=== PATIENT | female | born 1935 | race Caucasian/White ===

== ENCOUNTER 2021-03-03 01:59 | Inpatient (IN) | payer MEDICARE, OTHER, SELFPAY ==
[2021-03-03] VITALS (16 sets, daily range): BP systolic 110–187; BP diastolic 47–89; PULSE 71–88; RESP 16–20; TEMP 36.1–36.8; O2SAT 95–100; BMI 27.1
--- NOTE | 2021-03-03 02:07 | EKG12_ITS ---
Test Reason : SOB Blood Pressure : / mmHG Vent. Rate : 076 BPM Atrial Rate : 076 BPM P-R Int : 152 ms QRS Dur : 074 ms QT Int : 464 ms P-R-T Axes : 060 -22 004 degrees QTc Int : 522 ms Normal sinus rhythm Inferior infarct , age undetermined Anteroseptal infarct , age undetermined Prolonged QT Abnormal ECG Confirmed by TATY AVILA, GIULIANO ([id number]), assignment desk editor ZEHRA BROOKE ([id number]) on 03/04/2021 9:07:41 AM Referred By: JEAN Confirmed By:GIULIANO POSEY MD
--- NOTE | 2021-03-03 02:15 | PCM.HP.STD ---
Documented by User: Irais Navas NP-Josse 03/03/21 02:51 HPI - General General Date of Admission: 03/03/21 HPI Narrative JUAN CHUNG, is a 86 F who presents today from [facility] for shortness of breath, elevated troponins. Patient states that she has been short of breath for the past 4 days. Patient states she is short of breath more so with exertion, currently on 3 L which is her home O2 setting. Upon review of chart from [facility] EKG shows normal sinus rhythm with an anteroseptal infarct, age undetermined and elevated troponins most recent 0.95. Patient also had elevated D-dimer, though when corrected for age is normal however a CTA was completed at that showed cardiomegaly, small bilateral pleural effusions with adjacent compressive atelectasis and mild groundglass opacities. Patient's Covid was negative. Patient also has a elevated BNP at 583. Patient was also found to have positive leukocytes, positive protein, positive blood and urine. Due to CT and urinalysis findings patient was given 1 dose of Levaquin IV at [place]. [facility] Medical History (Updated 03/03/21 @ 02:28 by Irais Navas NP-C) Left ovarian cyst Allergy/AdvReac Type Severity Reaction Status Date / Time Penicillins Allergy Mild Rash Verified 03/03/21 02:01 Surgical History (Updated 03/03/21 @ 02:28 by Irais Navas NP-C) H/O dilation and curettage History of appendectomy History of cholecystectomy Social History Smoking Status: Former smoker ROS Constitutional Constitutional: Reports fatigue; Denies anorexia, chills or fever(s) Cardiovascular Cardiovascular: Denies chest pain or palpitations Respiratory/Chest Respiratory/Chest: Reports cough, shortness of breath with exertion and wheezing Gastrointestinal Gastrointestinal: Reports diarrhea; Denies abdominal pain, constipation, nausea or vomiting Genitourinary Genitourinary: Reports dysuria Musculoskeletal Musculoskeletal: Reports back pain Integumentary Integumentary: Reports dry skin Neurologic Neurologic: Denies abnormal gait or abnormal speech Psychiatric Psychiatric: Denies anxiety or depression Endocrine Endocrinology: Denies change in body appearance Hematologic/Lymphatic Hematologic/Lymphatic: Reports anemia; Denies easy bleeding or easy bruising Physical Exam Const alert General Appearance: cooperative Orientation / Consciousness: oriented to person, oriented to place, oriented to time and other Other Details: Forgetful HEENT normocephalic and head/scalp atraumatic Eyes PERRL and EOMs intact bilaterally Neck supple and no JVD General: trachea midline Resp normal respiratory effort Effort and Inspection: tachypneic Auscultation: wheezes and diminished lung sounds diffuse Cardio regular rate, regular rhythm, S1 normal heart sound and S2 normal heart sound GI normal to inspection, nondistended, normoactive bowel sounds, soft to palpation and non-tender Auscultation: hyperactive bowel sounds Extremity normal capillary refill General Extremity: edema bilateral lower extremity Details: mild and no tenderness to palpation of joints or extremities Skin General Skin Exam: no breakdown and turgor normal Lesions: no lesions Rashes: no rashes Neuro CN's II-XII intact bilaterally Psych cooperative and affect normal Appearance: appropriate Assessment & Plan Assessment/Plan (1) Urinary tract infection: Status: Acute Code(s): N39.0 - Urinary tract infection, site not specified (2) Non-STEMI (non-ST elevated myocardial infarction): Status: Acute Code(s): I21.4 - Non-ST elevation (NSTEMI) myocardial infarction (3) Pneumonia: Status: Acute Code(s): J18.9 - Pneumonia, unspecified organism (4) Chronic anemia: Status: Chronic Code(s): D64.9 - Anemia, unspecified (5) GERD (gastroesophageal reflux disease): Status: Acute Code(s): K21.9 - Gastro-esophageal reflux disease without esophagitis (6) COPD (chronic obstructive pulmonary disease): Status: Chronic Code(s): J44.9 - Chronic obstructive pulmonary disease, unspecified (7) Hyperlipidemia: Status: Acute Code(s): E78.5 - Hyperlipidemia, unspecified (8) Diabetes mellitus type 2 in obese: Status: Acute Code(s): E11.69 - Type 2 diabetes mellitus with other specified complication; E66.9 - Obesity, unspecified (9) Hypertension: Status: Chronic Code(s): I10 - Essential (primary) hypertension Plan: 1. Pneumonia -Admit to PCU -Levaquin 750 mg IV every 24 hour for coverage of pneumonia and urinary tract infection -Sputum culture ordered -As needed albuterol nebulizer treatments ordered -Scheduled DuoNeb nebulizer treatments ordered -Encourage incentive spirometry -Infectious disease consulted due to recurrent pneumonia diagnosis -As needed Robitussin -Urine strep pneumoniae and Legionella ordered -Respiratory panel ordered, Covid PCR and antigen negative at [facility] -O2 per protocol, patient currently on 3 L which is her home O2 setting -PT and OT to eval and treat 2. Non-ST elevated myocardial infarction -Due to increasing troponins will continue heparin drip at this time -Cardiology consulted, JAIRON 4, HEART 6 -Trend cardiac enzymes -Echo in a.m. -Lipid panel in a.m. -We will keep n.p.o. at this time pending cardiology consult 3. Urinary tract infection -Urinalysis and urine culture ordered -Due to concurrent UTI and pneumonia strep pneumonia and Legionella urine ordered -Levaquin 750 mg IV ordered, to cover pneumonia and urinary tract infection -Intake and output 4. Chronic anemia -Continue ferrous gluconate 324 mg p.o. daily 5. Gastroesophageal reflux disease -Continue omeprazole daily 6. Chronic obstructive pulmonary disease -Continue prednisone 10mg every other day 7. Hyperlipidemia -Continue simvastatin 80 mg nightly 8. Diabetes mellitus type 2 in obese -Will hold Metformin and glimepiride at this time -AC at bedtime blood sugars with sliding scale -Lantus 10 units twice daily 9. Hypertension -Continue carvedilol, furosemide. DVT prophylaxis-not indicated, patient on heparin drip This patient was seen by ION Sewell under the supervision of Dr. Tineo Documented by User: Dr. Bob Tineo MD 03/03/21 03:20 HPI - General General Date of Admission: 03/03/21 [facility] Medical History (Updated 03/03/21 @ 02:28 by KENNY SewellC) Left ovarian cyst Allergy/AdvReac Type Severity Reaction Status Date / Time Penicillins Allergy Mild Rash Verified 03/03/21 02:01 Surgical History (Updated 03/03/21 @ 02:28 by Irais Navas NP-C) H/O dilation and curettage History of appendectomy History of cholecystectomy Social History Smoking Status: Former smoker Addendum Addendum: 86-year-old female with a significant history of COPD on 3 L nasal cannula oxygen; hyperlipidemia; diabetes mellitus; hypertension; who presented to [facility] ED with progressively worsening shortness of breath that started 3 days before presentation. Patient has received her Covid vaccination. Reportedly at the emergency department patient was wheezing and she was given DuoNeb and solumedrol. D-dimer age corrected was normal. Chest CTA was negative for PE. Chest x-ray showed bilateral pleural effusion and infiltrates. Urinalysis was abnormal. BNP was 583. Initial troponin was 0.439. Troponin increased to 0.95. Patient was given aspirin and started on a heparin drip. EKG showed old anterior septal infarct. Because of increasing troponin patient was sent to our Hospital. ([facility]). Vitals at [facility] was 136/90 Temp 99.1 Fahrenheit; respiratory rate of 20. Her oxygen saturation on a home baseline 3 L was 100%. Alert and oriented x3 Nontraumatic; normocephalic Lungs with rales Heart sounds S1-S2. Murmur 5/6 present. No gallop or rubs. Abdomen bowel sounds present soft, nontender nondistended Extremity without edema cyanosis or clubbing. Community-acquired pneumonia Acute chest x-ray image was independently interpreted: Patient with cardiomegaly. Bilateral interstitial infiltrates. Bilateral pleural effusion. Was given Levaquin at [facility]. Home record shows Levaquin. Will order ceftriaxone and azithromycin. Acute Cystitis Complains of urinary symptoms. Urinalysis at [place] ED was reviewed. Urinalysis with small leukocyte esterase. Proteinuria. Urine appearance was hazy. Small blood was present. Nitrites negative. Received Levaquin at [facility] ED. GFR is 58. Ceftriaxone as above. Non-ST elevation [place] Trend troponin. Continue heparin drip for now. Daily aspirin ordered. Check lipid panel Keep n.p.o. for now. Echo ordered A chest CT with small bilateral pleural effusion with adjacent compressive atelectasis. Cardiomegaly with trace pericardial effusion. Groundglass opacities. Daily weights ordered. Cardiology consult COPD: Stable. Continue home steroids. Scheduled DuoNeb ordered. As needed albuterol inhalation ordered. Clinical monitoring. If moderate to severe wheezing consider escalating steroid dose Diabetes mellitus: Patient with hyperglycemia on presentation at [facility] ED. While n.p.o. hold glimepiride. Metformin held. Accu-Chek with correction scale insulin ordered. Diarrhea: Chronic. Continue cholestyramine when patient is no longer n.p.o. Patient to follow-up with PCP. DVT prophylaxis: Not indicated since patient is on heparin drip which has been continued. Visit Charges Inpatient E&M: 50708 Init Hosp L3
[2021-03-03 03:03] LABS: Absolute Lymphocyte Count 0.46 X10^3/uL (0.83-4.51); Absolute Neutrophil Count 4.3 X10^3/uL (2.0-7.7); Basophil# 0.01 X10^3/uL; Basophil% 0.2 % (0-1); Hematocrit 36.8 % (37-47); Hemoglobin 11.8 g/dL (12.0-15.0); Lymphocyte # 0.46 X10^3/ul (0.83-4.51); Lymphocyte % 9.5 % (19-41); Mean Corp Hgb Conc 32.1 g/dL (32-36); Mean Corpuscular Hgb 26.4 pg (27.0-32.0); Mean Corpuscular Volume 82.3 fL (81-99); Mean Platelet Vol. 8.8 fl (6.2-12.0); Monocyte# 0.08 X10^3/uL; Monocyte% 1.7 % (0-10); NRBC Flagged by Analyzer 0 % (0-5); Neutrophil # 4.26 X10^3/uL (2.7-7.7); POSITIVE DIFFERENTIAL YES; Platelet Count 171 K/mm3 (150-450); RBC Distribution Width CV 13.3 % (11.6-14.6); Red Blood Count 4.47 M/mm3 (4.2-5.4); White Blood Count 4.8 K/mm3 (4.4-11.0)
[2021-03-03 03:08] LABS: Differential Indicated SCAN CRITERIA MET
[2021-03-03 03:36] LABS: Partial Thromboplast Time 112.7 Seconds (24.1-36.2)
[2021-03-03] MEDS: 0.9% Saline Lock 10 ML Syringe IV ×5 (03:48→18:01)
[2021-03-03] MEDS: Ceftriaxone 1 GM/50 ML BAG IV ×2 (03:49→21:55)
[2021-03-03] MEDS: Ipratropium/Albuterol Sulfate 3 ML AMPUL.NEB INHALATION ×5 (04:00→22:49)
[2021-03-03] MEDS: HEPARIN/D5w 25,000 UNITS 25,000 UNITS/250 ML IV.SOLN. 7 UNITS IV (05:12)
--- NOTE | 2021-03-03 05:55 | ECHOD_ITS ---
Reason For Study: Other Procedure This was a 2D Doppler, Color Flow transthoracic echocardiogram. Exam performed portable in patient room. Left Ventricle Normal LV size. Severe concentric left ventricular hypertrophy. Left ventricular systolic function is normal. The estimated ejection fraction is 65 %. No regional wall motion abnormalities noted. Right Ventricle Normal RV size. Normal systolic function. Atria Normal left atrium. Normal right atrium. Mitral Valve Normal mitral valve. Trivial eccentric mitral valve insufficiency. Tricuspid Valve Normal tricuspid valve. Mild to moderate (1-2+) tricuspid valve insufficiency. Pulmonary artery systolic pressure is 38 mmHg. Aortic Valve Trisinus/trileaflet aortic valve. Mild focal aortic valve calcification. Peak aortic valve gradient 24 mmHg. Mean aortic valve gradient 14 mmHg. Mild to moderate aortic stenosis. Pulmonic Valve Normal pulmonic valve. Great Vessels Normal aortic root. The pulmonary artery is normal size. Normal inferior vena cava. Pericardium/Pleural Trivial pericardial effusion. MMode/2D Measurements & Calculations LVIDd: 3.2 cm IVSd: 1.9 cm LVOT diam: 1.9 cm LVIDs: 1.9 cm LVPWd: 1.6 cm LVOT area: 2.7 cm2 RVDd: 2.8 cm FS: 39.3 % Ao root diam: 3.2 cm LAV(MOD-bp): 37.6 ml LA A4 area: 15.5 cm2 LAV(MOD-bp) Indexed: 21.8 ml/m2 LAV(MOD-sp2): 40.4 ml LAV(MOD-sp4): 35.9 ml LA dimension(2D): 3.9 cm RA A4 area: 13.2 cm2 Time Measurements MV dec time: 0.49 sec Doppler Measurements & Calculations MV E max aguila: 107.6 cm/sec Lat Peak E' Aguila: 3.0 cm/sec Med Peak E' Aguila: 2.8 cm/sec MV A max aguila: 141.5 cm/sec E/E' lat: 35.5 E/E' med: 37.9 MV E/A: 0.76 MV V2 max: 143.4 cm/sec MV P1/2t max aguila: 118.1 cm/sec Ao V2 max: 247.1 cm/sec MV max P.2 mmHg MV P1/2t: 139.6 msec Ao max P.4 mmHg MV V2 mean: 88.7 cm/sec MV dec slope: 247.8 cm/sec2 Ao V2 mean: 179.3 cm/sec MV mean P.4 mmHg Ao mean P.1 mmHg MV V2 VTI: 45.6 cm MVA(P1/2t): 1.6 cm2 Ao V2 VTI: 58.9 cm MVA(VTI): 1.4 cm2 MUSTAPHA(I,D): 1.1 cm2 MUSTAPHA(V,D): 1.1 cm2 LV V1 max: 101.2 cm/sec SV(LVOT): 64.5 ml PA V2 max: 111.7 cm/sec LV V1 max P.1 mmHg LV V1 mean P.3 mmHg LV V1 mean: 73.4 cm/sec LV V1 VTI: 23.7 cm TR max aguila: 294.9 cm/sec TR max P.8 mmHg ECHO/Echo Complete Interpretation Summary Normal LV size. Left ventricular systolic function is normal. The estimated ejection fraction is 65 %. Mild focal aortic valve calcification. Mean aortic valve gradient 14 mmHg. Mild to moderate aortic stenosis. Pulmonary artery systolic pressure is 38 mmHg. Severe concentric left ventricular hypertrophy. Infiltrative disease cannot be excluded. Ordering Physician: Irais Navas Referring Physician: Joaquin Caro Performed By: Ashely Lea, TABATHA, RVT
[2021-03-03] MEDS: Insulin Lispro 100 UNIT/ML INSULN.PEN SC ×4 (06:42→22:00)
[2021-03-03 06:51] LABS: Bedside Glucose 412 mg/dL (70-110)
--- NOTE | 2021-03-03 07:00 | PCM.PN.HOSP ---
Subjective Subjective: Patient with no acute events overnight per self and per nursing report. Patient does state that suprapubic discomfort has been lessening since initial presentation and initiation of antibiotic therapy. She does still have some urinary frequency sensation. Patient notes some mild cough but no dyspnea sensation. She denies having any chest discomfort despite presentation with elevated cardiac enzymes. Patient denies fevers, chills, nausea, emesis, abdominal pain, chest pain. Objective Data Objective Data Vital Signs: Vital Signs Temp Pulse Resp BP Pulse Ox 97.1 F L 88 18 146/47 H 98 03/03/21 12:35 03/03/21 12:35 03/03/21 12:35 03/03/21 12:35 03/03/21 12:35 Oxygen Flow Rate (L/min) 3 Oxygen Delivery Method Nasal Cannula Weight: 153 lb 3.54 oz Body Mass Index (BMI) 27.1 Intake & Output: Intake and Output for Last 24 Hours 03/01/21 03/02/21 03/03/21 23:59 23:59 23:59 Intake Total 830.35 / 830.35 Output Total 200 / 200 Balance 630.35 / 630.35 Lab / Micro Data Result Diagrams: 03/03/21 02:50 03/03/21 02:50 Labs: Laboratory Results - last 24 hr 03/03/21 03/03/21 03/03/21 02:50 02:50 02:50 WBC 4.8 RBC 4.47 Hgb 11.8 L Hct 36.8 L MCV 82.3 MCH 26.4 L MCHC 32.1 RDW Std Deviation 40.0 RDW Coeff of Tashia 13.3 Plt Count 171 MPV 8.8 Immature Gran % (Auto) 0.600 Neut % (Auto) 88.0 H Lymph % (Auto) 9.5 L [place] % (Auto) 1.7 Eos % (Auto) 0.0 Baso % (Auto) 0.2 Absolute Neuts (auto) 4.3 Absolute Lymphs (auto) 0.46 L Nucleated RBC % 0 APTT 112.7 H* Sodium 131 L Potassium 3.6 Chloride 97 L Carbon Dioxide 24.0 Anion Gap 10 BUN 17 Creatinine 1.25 H Estim Creat Clear Calc 27.22 Est GFR (MDRD) Af Amer 52 L Est GFR (MDRD) Non-Af 43 L BUN/Creatinine Ratio 13.6 Glucose 399 H Hemoglobin A1c Calcium 8.0 L Magnesium Troponin I B-Natriuretic Peptide Triglycerides 147 Cholesterol 166 LDL Cholesterol 69 VLDL Cholesterol 29 HDL Cholesterol 68 Procalcitonin TSH Urine Color Urine Clarity Urine pH Ur Specific [place] Urine Protein Urine Glucose (UA) Urine Ketones Urine Occult Blood Urine Nitrite Urine Bilirubin Urine Urobilinogen Ur Leukocyte Esterase Urine RBC Urine WBC Ur Squamous Epith Cells Urine Bacteria Urine Mucus POC Glucose 03/03/21 03/03/21 03/03/21 02:50 02:50 05:50 WBC RBC Hgb Hct MCV MCH MCHC RDW Std Deviation RDW Coeff of Tashia Plt Count MPV Immature Gran % (Auto) Neut % (Auto) Lymph % (Auto) [place] % (Auto) Eos % (Auto) Baso % (Auto) Absolute Neuts (auto) Absolute Lymphs (auto) Nucleated RBC % APTT Sodium Potassium Chloride Carbon Dioxide Anion Gap BUN Creatinine Estim Creat Clear Calc Est GFR (MDRD) Af Amer Est GFR (MDRD) Non-Af BUN/Creatinine Ratio Glucose Hemoglobin A1c 8.5 H Calcium Magnesium Troponin I 1.400 H* 1.110 H* B-Natriuretic Peptide Triglycerides Cholesterol LDL Cholesterol VLDL Cholesterol HDL Cholesterol Procalcitonin TSH Urine Color Urine Clarity Urine pH Ur Specific [place] Urine Protein Urine Glucose (UA) Urine Ketones Urine Occult Blood Urine Nitrite Urine Bilirubin Urine Urobilinogen Ur Leukocyte Esterase Urine RBC Urine WBC Ur Squamous Epith Cells Urine Bacteria Urine Mucus POC Glucose 03/03/21 03/03/21 03/03/21 05:50 06:17 06:40 WBC RBC Hgb Hct MCV MCH MCHC RDW Std Deviation RDW Coeff of Tashia Plt Count MPV Immature Gran % (Auto) Neut % (Auto) Lymph % (Auto) [place] % (Auto) Eos % (Auto) Baso % (Auto) Absolute Neuts (auto) Absolute Lymphs (auto) Nucleated RBC % APTT Sodium Potassium Chloride Carbon Dioxide Anion Gap BUN Creatinine Estim Creat Clear Calc Est GFR (MDRD) Af Amer Est GFR (MDRD) Non-Af BUN/Creatinine Ratio Glucose Hemoglobin A1c Calcium Magnesium Troponin I B-Natriuretic Peptide 480.7 H Triglycerides Cholesterol LDL Cholesterol VLDL Cholesterol HDL Cholesterol Procalcitonin TSH Urine Color Yellow Urine Clarity Clear Urine pH 6.0 Ur Specific [place] 1.015 Urine Protein 500 H Urine Glucose (UA) 1000 H Urine Ketones 50 H Urine Occult Blood 150 H Urine Nitrite Negative Urine Bilirubin Negative Urine Urobilinogen Normal Ur Leukocyte Esterase 100 H Urine RBC 0-5 SEEN Urine WBC 25-50 SEEN Ur Squamous Epith Cells 0-5 SEEN Urine Bacteria RARE Urine Mucus 0 SEEN POC Glucose 412 H 03/03/21 03/03/21 03/03/21 08:46 08:46 08:46 WBC RBC Hgb Hct MCV MCH MCHC RDW Std Deviation RDW Coeff of Tashia Plt Count MPV Immature Gran % (Auto) Neut % (Auto) Lymph % (Auto) [place] % (Auto) Eos % (Auto) Baso % (Auto) Absolute Neuts (auto) Absolute Lymphs (auto) Nucleated RBC % APTT Sodium Potassium Chloride Carbon Dioxide Anion Gap BUN Creatinine Estim Creat Clear Calc Est GFR (MDRD) Af Amer Est GFR (MDRD) Non-Af BUN/Creatinine Ratio Glucose Hemoglobin A1c Calcium Magnesium 1.5 L Troponin I 0.749 H* B-Natriuretic Peptide Triglycerides Cholesterol LDL Cholesterol VLDL Cholesterol HDL Cholesterol Procalcitonin 0.17 H TSH Urine Color Urine Clarity Urine pH Ur Specific [place] Urine Protein Urine Glucose (UA) Urine Ketones Urine Occult Blood Urine Nitrite Urine Bilirubin Urine Urobilinogen Ur Leukocyte Esterase Urine RBC Urine WBC Ur Squamous Epith Cells Urine Bacteria Urine Mucus POC Glucose 03/03/21 03/03/21 03/03/21 08:46 11:10 12:16 WBC RBC Hgb Hct MCV MCH MCHC RDW Std Deviation RDW Coeff of Tashia Plt Count MPV Immature Gran % (Auto) Neut % (Auto) Lymph % (Auto) [place] % (Auto) Eos % (Auto) Baso % (Auto) Absolute Neuts (auto) Absolute Lymphs (auto) Nucleated RBC % APTT 32.8 Sodium Potassium Chloride Carbon Dioxide Anion Gap BUN Creatinine Estim Creat Clear Calc Est GFR (MDRD) Af Amer Est GFR (MDRD) Non-Af BUN/Creatinine Ratio Glucose Hemoglobin A1c Calcium Magnesium Troponin I B-Natriuretic Peptide Triglycerides Cholesterol LDL Cholesterol VLDL Cholesterol HDL Cholesterol Procalcitonin TSH 1.55 Urine Color Urine Clarity Urine pH Ur Specific [place] Urine Protein Urine Glucose (UA) Urine Ketones Urine Occult Blood Urine Nitrite Urine Bilirubin Urine Urobilinogen Ur Leukocyte Esterase Urine RBC Urine WBC Ur Squamous Epith Cells Urine Bacteria Urine Mucus POC Glucose 420 H Micro: Microbiology 03/03/21 03:55 Mucosa - Nasopharyngeal Respiratory Panel (PCR) - Final Parainfluenza 3 03/03/21 08:00 Interface Orders SARS-CoV-2 Antigen (Rapid) - Final 03/03/21 06:17 Urine, Clean Catch Legionella Antigen - Final 03/03/21 06:17 Urine, Clean Catch Streptococcus pneumoniae Antigen (M - Final Radiography Diagnostic Testing: Radiology Impression Echocardiogram 03/03/21 05:55 Interpretation Summary Normal LV size. Left ventricular systolic function is normal. The estimated ejection fraction is 65 %. Mild focal aortic valve calcification. Mean aortic valve gradient 14 mmHg. Mild to moderate aortic stenosis. Pulmonary artery systolic pressure is 38 mmHg. Severe concentric left ventricular hypertrophy. Infiltrative disease cannot be excluded. Ordering Physician: Irais Navas Referring Physician: Joaquin Caro Performed By: Ashely Lea, TABATHA, RVT Physical Exam Narrative Physical Examination: General: awake, alert, oriented x 3 and cooperative, seated upright in the PCU bed in no apparent distress, notes feeling improved since initial ED presentation. Skin: normal color, turgor, no icterus, cyanosis. HEENT: AT/NC, EOMI, PERRLA, mildly dry MM. Lungs: CTA bilaterally, moderate effort, mild decrease BL bases, no rales, ronchi or wheezing. Heart: Regular rate and rhythm; no gallop, rub audible, + SM. Abdomen: soft, NTTP, ND, normal BS, no HSM. Extremities: no cyanosis, clubbing, or edema. Neurological: patient awake, alert, oriented x 3; cognitive function intact; pupils equally reactive to light and accomodation; cranial nerves II-XII grossly normal, moving all 4 extremities, no focal deficits, strength preserved. Psychiatric: affect appears normal, no acute evidence of depressive or anxiety feelings. Assessment & Plan Assessment/Plan (1) COPD exacerbation: (2) Acute bronchitis due to parainfluenza virus: (3) Non-STEMI (non-ST elevated myocardial infarction): (4) CHF (NYHA class III, ACC/AHA stage C): (5) Urinary tract infection: PLAN: The patient is an 86 y/o F w/ PMHx: Chronic anemia, GERD, HTN, HLD, Diabetes mellitus type II, Former Tobacco use, Chronic COPD w/ Chronic Hypoxic Respiratory Failure (3L NC) who presents to the [facility] ED on 03/03/21 w/ history of transfer from OSH ED [place] with onset dyspnea worsening x 4 days with elevated troponin, evidence UTI and at that time concern for PNA. 1. Acute Parainfluenza III Viral Syndrome, Acute Bronchitis with Acute on Chronic COPD exacerbation w/ Chronic Hypoxic Respiratory Failure (3L NC): OSH [place] ED with CTPA with cardiomegaly with small bilateral pleural effusions and adjacent compressive atelectasis as well as mild groundglass opacities, Covid negative, BNP 583. Patient was administered Levaquin IV dose at [facility] for concern for UTI and pneumonia. Admitted to PCU, maintain on oxygen with wean as tolerated to room air, continue ATC duonebs, PRN albuterol, maintained on Rocephin and Azithromycin initially but given respiratory viral panel with + source likely viral component and CTPA findings overload as noted #3 with CBC upon current presentation with WBC 4.8, hemoglobin 11.8, platelet 171 with no left shift with lymphopenia therefore will discontinue azithromycin (continue rocephin for concurrently noted UTI). HOB, IS parameters w/ pending sputum cultures. Urine antigens negative. 2. Acute NSTEMI: EKG in ED w/ sinus rhythm with evidence prior anterior septal infarct age undetermined, CT PA as noted with cardiomegaly with small bilateral pleural effusions and adjacent compressive atelectasis as well as mild groundglass opacities with no evidence of pulmonary emboli. Continue treatment as noted #1, Trop elevated, 0.95 at outside facility with also elevated D-dimer but age corrected is appropriat. Will maintain on a monitored bed, continue serial cardiac enzymes with [facility] trend 1.40->1.110->0.749. ECHO requested. Mag pending. Maintained on therapeutic lovenox. Continue medical management w/ asa, BB, statin w/ AM FLP with total cholesterol 166, triglycerides 147, LDL 69, VLDL 29, HDL 68. Cardiology consulted. Given acute infectious presentation would be best if cardiology amenable to assure complete resolution prior to consideration catheterization. 3. Acute Decompensated CHF Unclear Type, Possibly Cardiomyopathy with #2: CTPA with patchy opacities and given #1, suspect overload with elevated BNP. Patient maintainrf on cardiac telemetry, initiated and continue IV lasix diuresis per Cardiology, monitor I/Os, continue medical therapy w/ asa, statin, BB, ACEI, will obtain TSH and magnesium level. ECHO ordered. Cardiology consulted, pending. 4. Acute Urinary Tract Infection: UA upon ED evaluation remarkable, pending UCx which will need to be followed up at outside facility for speciation and sensitivities, continue IV Rocephin w/ transition as able pending sensitivities and speciation. 5. Hypertension: Continue home regimen including Coreg, lisinopril, IV Lasix per cardiology, PRN hydralazine. 6. Hyperlipidemia: Continue home statin regimen. AM FLP obtained as noted above. 7. Diabetes mellitus type II: Hold oral home regimen, hemoglobin A1c 8.5%, nutrition consultation for education and teaching, ADA diet, accu checks w/ ISS. 8. Former tobacco use: Encourage continued tobacco cessation. 9. GERD: Maintained on PPI. 10. DVT prophylaxis: SCDs, therapeutic Lovenox as noted. 11. CODE status: DNR-CCA, no intubation. Procedures Hospitalists Procedures: Other Procedure - See Report (Non-billable code, patient admitted after midnight.)
[2021-03-03 07:01] LABS: Mucous, Urine 0 SEEN /hpf (<or=2+)
[2021-03-03 07:06] LABS: Color, Urine Yellow (Yellow); Glucose, Dipstick 1000 mg/dl (Normal); Ketone-Dipstick 50 mg/dl (Negative); Leukocyte Esterase-Dipstick 100 /ul (Negative); Nitrite-Dipstick Negative (Negative); Occult Blood-Urine 150 /ul (Negative); Protein-Dipstick 500 mg/dl (Negative); Specific Gravity, Urine 1.015 (1.002-1.030); Urine Bilirubin Dipstick Negative (Negative); Urine Clarity Clear (Clear); Urine Urobilinogen Normal (Normal)
[2021-03-03 07:12] LABS: Red Blood Cells-Urine 0-5 SEEN /hpf (0-5); Squamous Epithelial Cells - UA 0-5 SEEN /hpf (5-10); White Blood Cells 25-50 SEEN /hpf (0-5)
[2021-03-03 07:13] LABS: Bacteria RARE /hpf (None Seen)
--- NOTE | 2021-03-03 07:53 | PCM.CONS.C ---
Assessment & Plan Assessment/Plan (1) Non-STEMI (non-ST elevated myocardial infarction): Status: Acute Code(s): I21.4 - Non-ST elevation (NSTEMI) myocardial infarction Plan: She presents with a non-ST elevation myocardial infarction with elevated troponin at this time. My recommendations will be as follows: Echocardiogram to assess ventricular function Aspirin Beta-bridget with carvedilol and I will switch dose to 12.5 mg twice a day She may eventually need a cardiac catheterization to assess her coronary anatomy DC heparin Start Lovenox I have discussed the above with her and the nurse (2) Hypertension: Status: Chronic Code(s): I10 - Essential (primary) hypertension Plan: Her blood pressure appears to be suboptimally controlled at this particular time and I would recommend optimizing the carvedilol dose Add an HELEN inhibitor to her regimen (3) CHF (NYHA class III, ACC/AHA stage C): Status: Acute Code(s): I50.9 - Heart failure, unspecified Plan: She appears to be in congestive heart failure. The etiology is likely secondary to hypertensive heart disease as well as coronary disease Will obtain echocardiogram to assess ventricular function Continue beta-bridget Start HELEN inhibitor Intravenous diuresis with Lasix Further recommendations will depend on the results of the above test. Thank you for allowing me to participate in the care of your patient. Please don't hesitate to call if any issues arise. HPI Consult Data Date of Consult: 03/03/21 HPI Narrative HPI Narrative: JUAN CHUNG, is a 86 F who presents as a transfer from the outside hospital where she had presented with 3 days of shortness of breath. She denied any palpitations or chest pain. She denied any pedal edema she did have some paroxysmal nocturnal dyspnea as well as exertional shortness of breath. She also had a mild cough. She thought she had a pneumonia and went into the hospital and x-ray was done and cardiac enzymes were done and it was abnormal and she was transferred here. Since coming here she has not had any chest discomfort no radiation. She has had no dizziness or diaphoresis no near syncope or syncope. Cardiac enzymes continue to be abnormal. Her EKG demonstrated normal sinus rhythm with no acute changes. Cardiology was called for further evaluation and management. CTA was done which demonstrated no evidence of PE, her natruretic peptide level was elevated. [facility] Medical History Left ovarian cyst Home Medications aspirin 81 mg PO DAILY 03/03/21 [History Last Taken Unknown] carvedilol [Coreg] 9.375 mg PO DAILY 03/03/21 [History Last Taken Unknown] cholestyramine (with sugar) 1 ea PO DAILY PRN 03/03/21 [History Last Taken Unknown] esomeprazole magnesium 20 mg PO QODAY 03/03/21 [History Last Taken Unknown] ferrous gluconate 324 mg PO DAILY 03/03/21 [History Last Taken Unknown] furosemide 40 mg PO DAILY 03/03/21 [History Last Taken Unknown] glimepiride 4 mg PO DAILY 03/03/21 [History Last Taken Unknown] hydrocodone-acetaminophen 1 tab PO Q6H PRN PRN 03/03/21 [History Last Taken Unknown] insulin regular human [Novolin R Regular U-100 Insuln] 40 - 50 unit SUBCUT DAILY 03/03/21 [History Last Taken Unknown] metformin 500 mg PO DAILY 03/03/21 [History Last Taken Unknown] potassium chloride 20 meq PO DAILY 03/03/21 [History Last Taken Unknown] prednisone 10 mg PO QODAY 03/03/21 [History Last Taken Unknown] simvastatin 80 mg PO DAILY 03/03/21 [History Last Taken Unknown] Allergy/AdvReac Type Severity Reaction Status Date / Time Penicillins Allergy Mild Rash Verified 03/03/21 02:01 Surgical History H/O dilation and curettage History of appendectomy History of cholecystectomy Social History Smoking Status: Former smoker ROS Constitutional Constitutional: Reports systems reviewed and no addt'l complaints, except as documented Eyes Eyes: Reports systems reviewed and no addt'l complaints, except as documented ENT HEENT: Reports none Cardiovascular Cardiovascular: Reports dyspnea, dyspnea at rest and dyspnea on exertion; Denies chest pain at rest, chest pain with activity or leg edema Respiratory/Chest Respiratory/Chest: Reports dyspnea, dyspnea on exertion, tachypnea and wheezing Gastrointestinal Gastrointestinal: Denies systems reviewed and no addt'l complaints, except as documented Genitourinary Genitourinary: Denies systems reviewed and no addt'l complaints, except as documented Musculoskeletal Musculoskeletal: Reports systems reviewed and no addt'l complaints, except as documented Integumentary Integumentary: Reports systems reviewed and no addt'l complaints, except as documented Neurologic Neurologic: Reports systems reviewed and no addt'l complaints, except as documented Psychiatric Psychiatric: Reports systems reviewed and no addt'l complaints, except as documented Endocrine Endocrinology: Reports systems reviewed and no addt'l complaints, except as documented Hematologic/Lymphatic Hematologic/Lymphatic: Reports systems reviewed and no addt'l complaints, except as documented Physical Exam Const oriented x3 and healthy appearing Orientation / Consciousness: awake HEENT normocephalic Eyes PERRL and conjunctivae normal Neck supple, no JVD and no carotid bruits Chest inspection of chest normal Resp normal respiratory effort Auscultation: diminished lung sounds Cardio regular rate, regular rhythm and S1 normal heart sound Palpation: normal PMI Rate: regular rate Rhythm: regular rhythm Heart Sounds: S1 normal and S2 normal Peripheral Pulses: pulses 2+ throughout GI normal to inspection, nondistended, normoactive bowel sounds Extremity normal to inspection and no clubbing, cyanosis or edema Psych mental status grossly normal
[2021-03-03] MEDS: Ferrous Gluconate 324 MG Tablet PO (08:11)
[2021-03-03] MEDS: Aspirin 81 MG TAB.CHEW PO (08:11)
[2021-03-03 08:14] LABS: Hemoglobin A1c 8.5 % (3.8-5.6)
[2021-03-03 08:34] LABS: BNP,B-Type NATRIURETIC PEPTIDE 480.7 pg/mL (0-100)
[2021-03-03] MEDS: Pantoprazole Sodium 20 MG Tablet PO (09:09)
[2021-03-03] MEDS: guaiFENesin 1,200 MG Tablet 1200 MG PO ×2 (09:09→21:56)
[2021-03-03] MEDS: Lisinopril 5 MG Tablet PO (09:11)
[2021-03-03] MEDS: Carvedilol 12.5 MG Tablet PO ×2 (09:11→21:56)
[2021-03-03] MEDS: Furosemide 40 MG/4 ML Vial IV ×2 (09:11→18:01)
[2021-03-03 09:46] LABS: Procalcitonin 0.17 ng/mL (0.00-0.09)
[2021-03-03 10:57] LABS: Anion Gap 10 (5-15); BUN 17 mg/dL (7-18); BUN/Creat Ratio 13.6 RATIO (10-20); Chloride 97 mmol/L (98-107); Cholesterol 166 mg/dL (200); Creatinine, Serum 1.25 mg/dL (0.55-1.02); EST Glomerular Filtration Rate 43 mL/min (>60); Est Glom Filt Rate - Afr Amer 52 mL/min (>60); Estimated Creatinine Clearance 27.22 ml/min; Glucose 399 mg/dL (74-106); High Density Lipoprotein 68 mg/dL; Potassium 3.6 mmol/L (3.5-5.1); Sodium Level 131 mmol/L (136-145); Triglycerides 147 mg/dL; Very Low Density Lipoprotein 29 mg/dL (5-40)
[2021-03-03 11:31] LABS: Partial Thromboplast Time 32.8 Seconds (24.1-36.2)
--- NOTE | 2021-03-03 11:35 | CASEMGMT ---
Addendum entered by Kat Marcelo 03/03/21 15:35: TC to [employer] and spoke with Dinora to verify O2 script. Pt is ordered 3L continuous. Original Note: ANNALISE ORDAZ Assessment: Face to Face with pt for initial transition planning/care coordination assessment. RN SUSHMA introduced self and role at [facility], pt voices understanding and consents to assessment. Pt is A/O x4 and answers all questions appropriately at this time. Pt lying in bed with O2 on and at bedside in no distress. Care providers, pharmacy, and demographics verified/updated. Admitting Dx: Pna, UTI, NSTEMI PCP: [facility] Specialists: Pt denies having any specialists. [facility]erred [facility]acy: [facility] [place] [facility] [facility] [place] yes LW/HPOA: Pt reports she has a LW/DPOA. She is aware that it is not on file at [facility]. Her DPOA is her Steve Carmona. LNOK: Steve Carmona, Living Arrangements: Pt lives with in a condo with no steps to enter. Pt reports she is I in ADL's. Denies concerns at home. Transportation: Pt drives self and denies concerns with transportation. DME/HHC/SNF: Pt has a lift chair, cane, walker and O2 at home. O2 is through [employer]. Pt wears 3L NC cont. Pt denies any previous HHC or SNF stays. Pt states no concerns with going home at time of dc. Pt states no further concerns/needs. CM to follow O2 needs and therapy. Advised pt to ask CM if any further question/concerns/needs arise, voices understanding. Pt Goal: Home Plan: Home
[2021-03-03 12:03] LABS: Magnesium 1.5 mg/dL (1.6-2.6)
[2021-03-03 12:26] LABS: Bedside Glucose 420 mg/dL (70-110)
[2021-03-03 13:03] LABS: Thyroid Stim Hormone (TSH) 1.55 uIU/mL (0.358-3.74)
--- NOTE | 2021-03-03 14:24 | CHAPLAIN ---
Type of Pastoral Visit _x__ Initial Visit ___ Follow-up Visit ___ On-call Visit ___ General Patient Visit ___ Spiritual Assessment ___ Family Conference ___ Bereavement ___ Rapid Response ___ Code Blue ___ Other (describe below) Pastoral Care Referral From _x__ Patient ___ Family ___ Nurse ___ Physician ___ Geothermal System Installer ___ Mill Crane Operator ___ Other (describe below) Sacrament/Intervention _x__ Active listening ___ Anointing ___ Confucianist ___ Bereavement ___ Communion _x__ [place] exploration ___ _x__ Life review _x__ Prayer ___ Reconciliation ___ Sacrament of Sick _x__ Supportive presence ___ Wedding ___ Other (describe below) Pastoral Comments
[2021-03-03] MEDS: Magnesium Sulfate 4gm/100mL 4 GM/100 ML IV.SOLN. IV (15:35)
[2021-03-03] MEDS: guaiFENesin 10 ML UDC (200MG/10ML) 20 ML PO (16:20)
[2021-03-03 16:41] LABS: M R Staph aureus DNA By PCR Negative (Negative); Probe Check PASS; Specimen Processing Control PASS
[2021-03-03 16:55] LABS: Bedside Glucose 418 mg/dL (70-110)
[2021-03-03] MEDS: Enoxaparin 60 MG/0.6 ML Syringe SC (18:02)
[2021-03-03] MEDS: Glucerna Shake 120 ML LIQUID PO ×2 (18:02→21:57)
[2021-03-03] MEDS: Atorvastatin Calcium 40 MG Tablet PO (21:56)
[2021-03-03] MEDS: Insulin Lispro 100 UNIT/ML INSULN.PEN 10 UNIT SC (22:05)
[2021-03-03 22:15] LABS: Bedside Glucose 489 mg/dL (70-110)
[2021-03-04] VITALS (13 sets, daily range): BP systolic 110–159; BP diastolic 58–69; PULSE 67–88; RESP 16–20; TEMP 36.4–36.6; O2SAT 96–99
[2021-03-04 05:44] LABS: Absolute Lymphocyte Count 0.81 X10^3/uL (0.83-4.51); Absolute Neutrophil Count 9.4 X10^3/uL (2.0-7.7); Basophil# 0.01 X10^3/uL; Basophil% 0.1 % (0-1); Hematocrit 30.4 % (37-47); Hemoglobin 9.8 g/dL (12.0-15.0); Lymphocyte # 0.81 X10^3/ul (0.83-4.51); Lymphocyte % 7.6 % (19-41); Mean Corp Hgb Conc 32.2 g/dL (32-36); Mean Corpuscular Volume 80.6 fL (81-99); Mean Platelet Vol. 9.6 fl (6.2-12.0); Monocyte# 0.44 X10^3/uL; Monocyte% 4.1 % (0-10); NRBC Flagged by Analyzer 0 % (0-5); Neutrophil # 9.41 X10^3/uL (2.7-7.7); Neutrophil % 87.8 % (47-70); Platelet Count 175 K/mm3 (150-450); RBC Distribution Width CV 13.3 % (11.6-14.6); RBC Distribution Width SD 39.1 fl (35.1-43.9); Red Blood Count 3.77 M/mm3 (4.2-5.4); White Blood Count 10.7 K/mm3 (4.4-11.0)
[2021-03-04 06:14] LABS: ALB/GLOB Ratio 0.8 RATIO (0.9-2.4); AST(SGOT) 12 U/L (15-37); Alanine Aminotransfer ALT/SGPT 14 U/L (13-56); Albumin, Serum 2.1 g/dL (3.2-5.0); Alkaline Phosphatase 44 U/L (45-117); Anion Gap 9 (5-15); BUN 27 mg/dL (7-18); BUN/Creat Ratio 18.9 RATIO (10-20); Calcium,Total 8.1 mg/dL (8.5-10.1); Chloride 96 mmol/L (98-107); Creatinine, Serum 1.43 mg/dL (0.55-1.02); EST Glomerular Filtration Rate 37 mL/min (>60); Est Glom Filt Rate - Afr Amer 45 mL/min (>60); Estimated Creatinine Clearance 23.79 ml/min; Globulin 2.7 g/dL (2.2-4.2); Glucose 252 mg/dL (74-106); Magnesium 3.2 mg/dL (1.6-2.6); Potassium 3.3 mmol/L (3.5-5.1); Protein, Total 4.8 g/dL (6.4-8.2); Sodium Level 134 mmol/L (136-145)
--- NOTE | 2021-03-04 06:24 | PN.HOSP_ITS ---
Subjective Subjective: Patient with no acute events night per self and per nursing port. Patient is up and moving her room this morning, notes feeling significantly improved from day prior. She denies any chest discomfort or current exertional dyspnea. She notes mild coughing but this is lessened. Discussed plan of care which included cardiac catheterization 03/05/2021 to which she remains amenable. Patient denies fevers, chills, nausea, emesis, abdominal pain, chest pain or dyspnea. Objective Data Objective Data Vital Signs: Vital Signs Temp Pulse Resp BP Pulse Ox 97.5 F L 83 16 110/69 96 03/04/21 03:35 03/04/21 03:35 03/04/21 03:35 03/04/21 03:35 03/04/21 03:35 Oxygen Flow Rate (L/min) 3 Oxygen Delivery Method Nasal Cannula Weight: 156 lb 8.451 oz Body Mass Index (BMI) 27.1 Intake & Output: Intake and Output for Last 24 Hours 03/02/21 03/03/21 03/04/21 23:59 23:59 23:59 Intake Total 1380.35 / 1620.35 240 / 240 Output Total 200 / 200 Balance 1180.35 / 1420.35 240 / 240 Lab / Micro Data Result Diagrams: 03/04/21 05:14 03/04/21 05:14 Labs: Laboratory Results - last 24 hr 03/03/21 03/03/21 03/03/21 02:50 02:50 05:50 WBC RBC Hgb Hct MCV MCH MCHC RDW Std Deviation RDW Coeff of Tashia Plt Count MPV Immature Gran % (Auto) Neut % (Auto) Lymph % (Auto) [place] % (Auto) Eos % (Auto) Baso % (Auto) Absolute Neuts (auto) Absolute Lymphs (auto) Nucleated RBC % APTT Sodium 131 L Potassium 3.6 Chloride 97 L Carbon Dioxide 24.0 Anion Gap 10 BUN 17 Creatinine 1.25 H Estim Creat Clear Calc 27.22 Est GFR (MDRD) Af Amer 52 L Est GFR (MDRD) Non-Af 43 L BUN/Creatinine Ratio 13.6 Glucose 399 H Hemoglobin A1c 8.5 H Calcium 8.0 L Magnesium Total Bilirubin AST ALT Alkaline Phosphatase Troponin I 1.110 H* B-Natriuretic Peptide Total Protein Albumin Globulin Albumin/Globulin Ratio Triglycerides 147 Cholesterol 166 LDL Cholesterol 69 VLDL Cholesterol 29 HDL Cholesterol 68 Procalcitonin TSH Urine Color Urine Clarity Urine pH Ur Specific Mcgrady Urine Protein Urine Glucose (UA) Urine Ketones Urine Occult Blood Urine Nitrite Urine Bilirubin Urine Urobilinogen Ur Leukocyte Esterase Urine RBC Urine WBC Ur Squamous Epith Cells Urine Bacteria Urine Mucus MRSA (PCR) POC Glucose 03/03/21 03/03/21 03/03/21 05:50 06:17 06:40 WBC RBC Hgb Hct MCV MCH MCHC RDW Std Deviation RDW Coeff of Tashia Plt Count MPV Immature Gran % (Auto) Neut % (Auto) Lymph % (Auto) [place] % (Auto) Eos % (Auto) Baso % (Auto) Absolute Neuts (auto) Absolute Lymphs (auto) Nucleated RBC % APTT Sodium Potassium Chloride Carbon Dioxide Anion Gap BUN Creatinine Estim Creat Clear Calc Est GFR (MDRD) Af Amer Est GFR (MDRD) Non-Af BUN/Creatinine Ratio Glucose Hemoglobin A1c Calcium Magnesium Total Bilirubin AST ALT Alkaline Phosphatase Troponin I B-Natriuretic Peptide 480.7 H Total Protein Albumin Globulin Albumin/Globulin Ratio Triglycerides Cholesterol LDL Cholesterol VLDL Cholesterol HDL Cholesterol Procalcitonin TSH Urine Color Yellow Urine Clarity Clear Urine pH 6.0 Ur Specific Mc[place] 1.015 Urine Protein 500 H Urine Glucose (UA) 1000 H Urine Ketones 50 H Urine Occult Blood 150 H Urine Nitrite Negative Urine Bilirubin Negative Urine Urobilinogen Normal Ur Leukocyte Esterase 100 H Urine RBC 0-5 SEEN Urine WBC 25-50 SEEN Ur Squamous Epith Cells 0-5 SEEN Urine Bacteria RARE Urine Mucus 0 SEEN MRSA (PCR) POC Glucose 412 H 03/03/21 03/03/21 03/03/21 07:52 08:46 08:46 WBC RBC Hgb Hct MCV MCH MCHC RDW Std Deviation RDW Coeff of Tashia Plt Count MPV Immature Gran % (Auto) Neut % (Auto) Lymph % (Auto) [place] % (Auto) Eos % (Auto) Baso % (Auto) Absolute Neuts (auto) Absolute Lymphs (auto) Nucleated RBC % APTT Sodium Potassium Chloride Carbon Dioxide Anion Gap BUN Creatinine Estim Creat Clear Calc Est GFR (MDRD) Af Amer Est GFR (MDRD) Non-Af BUN/Creatinine Ratio Glucose Hemoglobin A1c Calcium Magnesium Total Bilirubin AST ALT Alkaline Phosphatase Troponin I 0.749 H* B-Natriuretic Peptide Total Protein Albumin Globulin Albumin/Globulin Ratio Triglycerides Cholesterol LDL Cholesterol VLDL Cholesterol HDL Cholesterol Procalcitonin 0.17 H TSH Urine Color Urine Clarity Urine pH Ur Specific Mc[place] Urine Protein Urine Glucose (UA) Urine Ketones Urine Occult Blood Urine Nitrite Urine Bilirubin Urine Urobilinogen Ur Leukocyte Esterase Urine RBC Urine WBC Ur Squamous Epith Cells Urine Bacteria Urine Mucus MRSA (PCR) Negative POC Glucose 03/03/21 03/03/21 03/03/21 08:46 08:46 11:10 WBC RBC Hgb Hct MCV MCH MCHC RDW Std Deviation RDW Coeff of Tashia Plt Count MPV Immature Gran % (Auto) Neut % (Auto) Lymph % (Auto) [place] % (Auto) Eos % (Auto) Baso % (Auto) Absolute Neuts (auto) Absolute Lymphs (auto) Nucleated RBC % APTT 32.8 Sodium Potassium Chloride Carbon Dioxide Anion Gap BUN Creatinine Estim Creat Clear Calc Est GFR (MDRD) Af Amer Est GFR (MDRD) Non-Af BUN/Creatinine Ratio Glucose Hemoglobin A1c Calcium Magnesium 1.5 L Total Bilirubin AST ALT Alkaline Phosphatase Troponin I B-Natriuretic Peptide Total Protein Albumin Globulin Albumin/Globulin Ratio Triglycerides Cholesterol LDL Cholesterol VLDL Cholesterol HDL Cholesterol Procalcitonin TSH 1.55 Urine Color Urine Clarity Urine pH Ur Specific [place] Urine Protein Urine Glucose (UA) Urine Ketones Urine Occult Blood Urine Nitrite Urine Bilirubin Urine Urobilinogen Ur Leukocyte Esterase Urine RBC Urine WBC Ur Squamous Epith Cells Urine Bacteria Urine Mucus MRSA (PCR) POC Glucose 03/03/21 03/03/21 03/03/21 12:16 16:23 21:48 WBC RBC Hgb Hct MCV MCH MCHC RDW Std Deviation RDW Coeff of Tashia Plt Count MPV Immature Gran % (Auto) Neut % (Auto) Lymph % (Auto) [place] % (Auto) Eos % (Auto) Baso % (Auto) Absolute Neuts (auto) Absolute Lymphs (auto) Nucleated RBC % APTT Sodium Potassium Chloride Carbon Dioxide Anion Gap BUN Creatinine Estim Creat Clear Calc Est GFR (MDRD) Af Amer Est GFR (MDRD) Non-Af BUN/Creatinine Ratio Glucose Hemoglobin A1c Calcium Magnesium Total Bilirubin AST ALT Alkaline Phosphatase Troponin I B-Natriuretic Peptide Total Protein Albumin Globulin Albumin/Globulin Ratio Triglycerides Cholesterol LDL Cholesterol VLDL Cholesterol HDL Cholesterol Procalcitonin TSH Urine Color Urine Clarity Urine pH Ur Specific Mc[place]y Urine Protein Urine Glucose (UA) Urine Ketones Urine Occult Blood Urine Nitrite Urine Bilirubin Urine Urobilinogen Ur Leukocyte Esterase Urine RBC Urine WBC Ur Squamous Epith Cells Urine Bacteria Urine Mucus MRSA (PCR) POC Glucose 420 H 418 H 489 H* 03/04/21 03/04/21 05:14 05:14 WBC 10.7 RBC 3.77 L Hgb 9.8 L Hct 30.4 L MCV 80.6 L MCH 26.0 L MCHC 32.2 RDW Std Deviation 39.1 RDW Coeff of Tashia 13.3 Plt Count 175 MPV 9.6 Immature Gran % (Auto) 0.400 Neut % (Auto) 87.8 H Lymph % (Auto) 7.6 L [place] % (Auto) 4.1 Eos % (Auto) 0.0 Baso % (Auto) 0.1 Absolute Neuts (auto) 9.4 H Absolute Lymphs (auto) 0.81 L Nucleated RBC % 0 APTT Sodium 134 L Potassium 3.3 L Chloride 96 L Carbon Dioxide 29.0 Anion Gap 9 BUN 27 H Creatinine 1.43 H Estim Creat Clear Calc 23.79 Est GFR (MDRD) Af Amer 45 L Est GFR (MDRD) Non-Af 37 L BUN/Creatinine Ratio 18.9 Glucose 252 H Hemoglobin A1c Calcium 8.1 L Magnesium 3.2 H Total Bilirubin 0.30 AST 12 L ALT 14 Alkaline Phosphatase 44 L Troponin I B-Natriuretic Peptide Total Protein 4.8 L Albumin 2.1 L Globulin 2.7 Albumin/Globulin Ratio 0.8 L Triglycerides Cholesterol LDL Cholesterol VLDL Cholesterol HDL Cholesterol Procalcitonin TSH Urine Color Urine Clarity Urine pH Ur Specific Mc[place] Urine Protein Urine Glucose (UA) Urine Ketones Urine Occult Blood Urine Nitrite Urine Bilirubin Urine Urobilinogen Ur Leukocyte Esterase Urine RBC Urine WBC Ur Squamous Epith Cells Urine Bacteria Urine Mucus MRSA (PCR) POC Glucose Micro: Microbiology 03/03/21 03:55 Mucosa - Nasopharyngeal Respiratory Panel (PCR) - Final Parainfluenza 3 03/03/21 08:00 Interface Orders SARS-CoV-2 Antigen (Rapid) - Final 03/03/21 06:17 Urine, Clean Catch Legionella Antigen - Final 03/03/21 06:17 Urine, Clean Catch Streptococcus pneumoniae Antigen (M - Final Radiography Diagnostic Testing: Radiology Impression Echocardiogram 03/03/21 05:55 Interpretation Summary Normal LV size. Left ventricular systolic function is normal. The estimated ejection fraction is 65 %. Mild focal aortic valve calcification. Mean aortic valve gradient 14 mmHg. Mild to moderate aortic stenosis. Pulmonary artery systolic pressure is 38 mmHg. Severe concentric left ventricular hypertrophy. Infiltrative disease cannot be excluded. Ordering Physician: Irais Navas Referring Physician: Joaquin Caro Performed By: Ashely Lea, TABATHA, RVT Physical Exam Narrative Physical Examination: General: awake, alert, oriented x 3 and cooperative, seated upright in the PCU bed in no apparent distress, improved appearance, walking initially in the room without issue. Skin: normal color, turgor, no icterus, cyanosis. HEENT: AT/NC, EOMI, PERRLA, resolved MMM. Lungs: CTA bilaterally, moderate effort, mild decrease BL bases, no rales, ronchi or wheezing. Heart: Regular rate and rhythm; no gallop, rub audible, + SM. Abdomen: soft, NTTP, ND, normal BS. Extremities: no cyanosis, clubbing, or edema. Neurological: patient awake, alert, oriented x 3; cognitive function intact; pupils equally reactive to light and accomodation; cranial nerves II-XII grossly normal, moving all 4 extremities, no focal deficits, strength improving, mildly to moderately global decrease secondary to acute presentation but significantly improved since initial presentation. Psychiatric: affect appears less fatigued, more normal, no acute evidence of depressive or anxiety feelings. Assessment & Plan Assessment/Plan (1) COPD exacerbation: (2) Acute bronchitis due to parainfluenza virus: (3) Non-STEMI (non-ST elevated myocardial infarction): (4) CHF (NYHA class III, ACC/AHA stage C): (5) Urinary tract infection: PLAN: The patient is an 86 y/o F w/ PMHx: Chronic anemia, GERD, HTN, HLD, Diabetes mellitus type II, Former Tobacco use, Chronic COPD w/ Chronic Hypoxic Respiratory Failure (3L NC) who presents to the [facility] ED on 03/03/21 w/ history of transfer from OSH ED [place] with onset dyspnea worsening x 4 days with elevated troponin, evidence UTI and at that time concern for PNA. 1. Acute Parainfluenza III Viral Syndrome, Acute Bronchitis with Acute on Chronic COPD exacerbation w/ Chronic Hypoxic Respiratory Failure (3L NC): OSH [place] ED with CTPA with cardiomegaly with small bilateral pleural effusions and adjacent compressive atelectasis as well as mild groundglass opacities, Covid negative, BNP 583. Patient was administered Levaquin IV dose at [facility] for concern for UTI and pneumonia. Admitted to PCU, maintain on oxygen with wean as tolerated to room air, continue ATC duonebs, PRN albuterol, maintained on Rocephin and Azithromycin initially but given respiratory viral panel with + source likely viral component and CTPA findings overload as noted #3 with CBC upon current presentation with WBC 4.8, hemoglobin 11.8, platelet 171 with no left shift with lymphopenia therefore 03/03/21 D/C azithromycin (continue rocephin for concurrently noted UTI). HOB, IS parameters w/ pending sputum cultures. Urine antigens negative. 03/04/2021 patient notably improved. 2. Acute NSTEMI: EKG in ED w/ sinus rhythm with evidence prior anterior septal infarct age undetermined, CT PA as noted with cardiomegaly with small bilateral pleural effusions and adjacent compressive atelectasis as well as mild groundglass opacities with no evidence of pulmonary emboli. Continue treatment as noted #1, Trop elevated, 0.95 at outside facility with also elevated D-dimer but age corrected is appropriat. Will maintain on a monitored bed, continue serial cardiac enzymes with [facility] trend 1.40->1.110->0.749. ECHO requested. Mag pending. Maintained on therapeutic lovenox. Continue medical management w/ asa, BB, ACEI, statin w/ AM FLP with total cholesterol 166, triglycerides 147, LDL 69, VLDL 29, HDL 68. Cardiology consulted, plan 03/05/2021 cardiac catheterization per discussion with cardiology. 3. Acute Decompensated CHF Unclear Type, Possibly Cardiomyopathy with #2: CTPA with patchy opacities and given #1, suspect overload with elevated BNP. Patient maintain on cardiac telemetry, initiated on IV lasix diuresis per Cardiology w/ 03/04/21 transition to oral lasix regimen, monitor I/Os, continue medical therapy w/ asa, statin, BB, ACEI, TSH 1.55 and magnesium level 1.5 with supplementation given, repeat 3.2. ECHO with normal LV size, normal LV systolic function, EF 65%, mild focal AV calcification, mean AV gradient 40 mmHg, mild to moderate aortic stenosis, PASP 38 mmHg, severe concentric LVH, infiltrative disease cannot be excluded. Cardiology consulted and following as noted. 4. ? Acute Urinary Tract Infection: UA upon ED evaluation remarkable, despite urinalysis urine culture currently exhibiting no growth and given #1 secondary to viral presentation will de-escalate off antibiotic therapy as long as outside facility cultures note similarly no growth however antibiotics have been given prior to urine culture obtained here. Continue rocephin in the interim until outside facility data confirmed. 5. Chronic kidney disease versus acute kidney injury/insufficiency, unclear: [place] mission BUN/creatinine 17/1.25, repeat 03/04/2021 worsening likely related with IV Lasix usage with BUN/creatinine 27/1.43, will continue to trend especially given diuretics. 6. Hypertension: Continue home regimen including Coreg, lisinopril, IV Lasix 03/04/21->oral lasix per Cardiology, PRN hydralazine. 7. Hyperlipidemia: Continue home statin regimen. AM FLP obtained as noted above. 8. Diabetes mellitus type II: Hold oral home regimen, hemoglobin A1c 8.5%, nutrition consultation for education and teaching, ADA diet, accu checks w/ ISS. 9. Former tobacco use: Encourage continued tobacco cessation. 10. GERD: Maintained on PPI. 11. Normocytic anemia: Admission hemoglobin 11.8, repeat 03/04/2021 9.8, will obtain iron panel, ferritin, vitamin B12 and folic acid as well as stool guaiac especially given acute presentation with pending cardiac catheterization 12. DVT prophylaxis: SCDs, therapeutic Lovenox as noted. 13. CODE status: DNR-CCA, no intubation. Visit Charges Inpatient E&M: 46516 Subs Hosp L2
[2021-03-04] MEDS: Enoxaparin 60 MG/0.6 ML Syringe SC (06:41)
[2021-03-04] MEDS: Insulin Lispro 100 UNIT/ML INSULN.PEN SC ×5 (06:41→21:51)
[2021-03-04] MEDS: 0.9% Saline Lock 10 ML Syringe IV ×2 (06:41→13:06)
[2021-03-04 06:51] LABS: Bedside Glucose 251 mg/dL (70-110)
[2021-03-04] MEDS: Ipratropium/Albuterol Sulfate 3 ML AMPUL.NEB INHALATION ×4 (07:02→18:50)
[2021-03-04] MEDS: Potassium Chloride Oral Tablet 20 MEQ 40 MEQ PO (07:14)
[2021-03-04] MEDS: Aspirin 81 MG TAB.CHEW PO (07:19)
--- NOTE | 2021-03-04 08:11 | PN.CARD_ITS ---
Subjective Subjective: Patient seen and evaluated and appears to be doing much better this morning Objective Data Vital Signs: Vital Signs Temp Pulse Resp BP Pulse Ox 97.5 F L 75 19 H 110/69 97 03/04/21 03:35 03/04/21 07:04 03/04/21 07:04 03/04/21 03:35 03/04/21 07:04 Oxygen Flow Rate (L/min) 3 Oxygen Delivery Method Nasal Cannula Weight: 156 lb 8.451 oz Body Mass Index (BMI) 27.1 Intake & Output: Intake and Output for Last 24 Hours 03/02/21 03/03/21 03/04/21 23:59 23:59 23:59 Intake Total 1380.35 / 1620.35 240 / 240 Output Total 200 / 200 Balance 1180.35 / 1420.35 240 / 240 Lab / Micro Data Result Diagrams: 03/04/21 05:14 03/04/21 05:14 Labs: Laboratory Results - last 24 hr 03/03/21 03/03/21 03/03/21 02:50 02:50 05:50 WBC RBC Hgb Hct MCV MCH MCHC RDW Std Deviation RDW Coeff of Tashia Plt Count MPV Immature Gran % (Auto) Neut % (Auto) Lymph % (Auto) [place] % (Auto) Eos % (Auto) Baso % (Auto) Absolute Neuts (auto) Absolute Lymphs (auto) Nucleated RBC % APTT Sodium 131 L Potassium 3.6 Chloride 97 L Carbon Dioxide 24.0 Anion Gap 10 BUN 17 Creatinine 1.25 H Estim Creat Clear Calc 27.22 Est GFR (MDRD) Af Amer 52 L Est GFR (MDRD) Non-Af 43 L BUN/Creatinine Ratio 13.6 Glucose 399 H Hemoglobin A1c 8.5 H Calcium 8.0 L Magnesium Total Bilirubin AST ALT Alkaline Phosphatase Troponin I B-Natriuretic Peptide 480.7 H Total Protein Albumin Globulin Albumin/Globulin Ratio Triglycerides 147 Cholesterol 166 LDL Cholesterol 69 VLDL Cholesterol 29 HDL Cholesterol 68 Procalcitonin TSH MRSA (PCR) POC Glucose 03/03/21 03/03/21 03/03/21 07:52 08:46 08:46 WBC RBC Hgb Hct MCV MCH MCHC RDW Std Deviation RDW Coeff of Tashia Plt Count MPV Immature Gran % (Auto) Neut % (Auto) Lymph % (Auto) [place] % (Auto) Eos % (Auto) Baso % (Auto) Absolute Neuts (auto) Absolute Lymphs (auto) Nucleated RBC % APTT Sodium Potassium Chloride Carbon Dioxide Anion Gap BUN Creatinine Estim Creat Clear Calc Est GFR (MDRD) Af Amer Est GFR (MDRD) Non-Af BUN/Creatinine Ratio Glucose Hemoglobin A1c Calcium Magnesium Total Bilirubin AST ALT Alkaline Phosphatase Troponin I 0.749 H* B-Natriuretic Peptide Total Protein Albumin Globulin Albumin/Globulin Ratio Triglycerides Cholesterol LDL Cholesterol VLDL Cholesterol HDL Cholesterol Procalcitonin 0.17 H TSH MRSA (PCR) Negative POC Glucose 03/03/21 03/03/21 03/03/21 08:46 08:46 11:10 WBC RBC Hgb Hct MCV MCH MCHC RDW Std Deviation RDW Coeff of Tashia Plt Count MPV Immature Gran % (Auto) Neut % (Auto) Lymph % (Auto) [place] % (Auto) Eos % (Auto) Baso % (Auto) Absolute Neuts (auto) Absolute Lymphs (auto) Nucleated RBC % APTT 32.8 Sodium Potassium Chloride Carbon Dioxide Anion Gap BUN Creatinine Estim Creat Clear Calc Est GFR (MDRD) Af Amer Est GFR (MDRD) Non-Af BUN/Creatinine Ratio Glucose Hemoglobin A1c Calcium Magnesium 1.5 L Total Bilirubin AST ALT Alkaline Phosphatase Troponin I B-Natriuretic Peptide Total Protein Albumin Globulin Albumin/Globulin Ratio Triglycerides Cholesterol LDL Cholesterol VLDL Cholesterol HDL Cholesterol Procalcitonin TSH 1.55 MRSA (PCR) POC Glucose 03/03/21 03/03/21 03/03/21 12:16 16:23 21:48 WBC RBC Hgb Hct MCV MCH MCHC RDW Std Deviation RDW Coeff of Tashia Plt Count MPV Immature Gran % (Auto) Neut % (Auto) Lymph % (Auto) [place] % (Auto) Eos % (Auto) Baso % (Auto) Absolute Neuts (auto) Absolute Lymphs (auto) Nucleated RBC % APTT Sodium Potassium Chloride Carbon Dioxide Anion Gap BUN Creatinine Estim Creat Clear Calc Est GFR (MDRD) Af Amer Est GFR (MDRD) Non-Af BUN/Creatinine Ratio Glucose Hemoglobin A1c Calcium Magnesium Total Bilirubin AST ALT Alkaline Phosphatase Troponin I B-Natriuretic Peptide Total Protein Albumin Globulin Albumin/Globulin Ratio Triglycerides Cholesterol LDL Cholesterol VLDL Cholesterol HDL Cholesterol Procalcitonin TSH MRSA (PCR) POC Glucose 420 H 418 H 489 H* 03/04/21 03/04/21 03/04/21 05:14 05:14 06:39 WBC 10.7 RBC 3.77 L Hgb 9.8 L Hct 30.4 L MCV 80.6 L MCH 26.0 L MCHC 32.2 RDW Std Deviation 39.1 RDW Coeff of Tashia 13.3 Plt Count 175 MPV 9.6 Immature Gran % (Auto) 0.400 Neut % (Auto) 87.8 H Lymph % (Auto) 7.6 L [place] % (Auto) 4.1 Eos % (Auto) 0.0 Baso % (Auto) 0.1 Absolute Neuts (auto) 9.4 H Absolute Lymphs (auto) 0.81 L Nucleated RBC % 0 APTT Sodium 134 L Potassium 3.3 L Chloride 96 L Carbon Dioxide 29.0 Anion Gap 9 BUN 27 H Creatinine 1.43 H Estim Creat Clear Calc 23.79 Est GFR (MDRD) Af Amer 45 L Est GFR (MDRD) Non-Af 37 L BUN/Creatinine Ratio 18.9 Glucose 252 H Hemoglobin A1c Calcium 8.1 L Magnesium 3.2 H Total Bilirubin 0.30 AST 12 L ALT 14 Alkaline Phosphatase 44 L Troponin I B-Natriuretic Peptide Total Protein 4.8 L Albumin 2.1 L Globulin 2.7 Albumin/Globulin Ratio 0.8 L Triglycerides Cholesterol LDL Cholesterol VLDL Cholesterol HDL Cholesterol Procalcitonin TSH MRSA (PCR) POC Glucose 251 H Micro: Microbiology 03/03/21 03:55 Mucosa - Nasopharyngeal Respiratory Panel (PCR) - Final Parainfluenza 3 03/03/21 08:00 Interface Orders SARS-CoV-2 Antigen (Rapid) - Final 03/03/21 06:17 Urine, Clean Catch Legionella Antigen - Final 03/03/21 06:17 Urine, Clean Catch Streptococcus pneumoniae Antigen (M - Final Cardiology Labs/Tests 03/03/21 02:50: Sodium 131 L, Potassium 3.6, Chloride 97 L, Carbon Dioxide 24.0, Anion Gap 10, BUN 17, Creatinine 1.25 H, Est GFR (MDRD) Af Amer 52 L, Est GFR (MDRD) Non-Af 43 L, BUN/Creatinine Ratio 13.6, Glucose 399 H, Calcium 8.0 L, Triglycerides 147, Cholesterol 166, LDL Cholesterol 69, VLDL Cholesterol 29, HDL Cholesterol 68 03/03/21 02:50: Hemoglobin A1c 8.5 H 03/03/21 05:50: B-Natriuretic Peptide 480.7 H 03/03/21 08:46: Troponin I 0.749 H* 03/03/21 08:46: Magnesium 1.5 L 03/03/21 11:10: APTT 32.8 03/04/21 05:14: WBC 10.7, RBC 3.77 L, Hgb 9.8 L, Hct 30.4 L, MCV 80.6 L, MCH 26.0 L, MCHC 32.2, Plt Count 175, MPV 9.6, Immature Gran % (Auto) 0.400, Neut % (Auto) 87.8 H, Lymph % (Auto) 7.6 L, [place] % (Auto) 4.1, Eos % (Auto) 0.0, Baso % (Auto) 0.1, Absolute Neuts (auto) 9.4 H, Nucleated RBC % 0 03/04/21 05:14: Sodium 134 L, Potassium 3.3 L, Chloride 96 L, Carbon Dioxide 29.0, Anion Gap 9, BUN 27 H, Creatinine 1.43 H, Est GFR (MDRD) Af Amer 45 L, Est GFR (MDRD) Non-Af 37 L, BUN/Creatinine Ratio 18.9, Glucose 252 H, Calcium 8.1 L, Magnesium 3.2 H, Total Bilirubin 0.30 Rhythm: EKG: ECHO: Stress Test: Cardiac Cath: PCI: CT Surgery: Holter monitor: EPS: PPM: CXR: Chest CT Scan: Radiography Diagnostic Testing: Radiology Impression Echocardiogram 03/03/21 05:55 Interpretation Summary Normal LV size. Left ventricular systolic function is normal. The estimated ejection fraction is 65 %. Mild focal aortic valve calcification. Mean aortic valve gradient 14 mmHg. Mild to moderate aortic stenosis. Pulmonary artery systolic pressure is 38 mmHg. Severe concentric left ventricular hypertrophy. Infiltrative disease cannot be excluded. _ Ordering Physician: Irais Navas Referring Physician: Joaquin Caro Performed By: Ashely Lea, RDCS, RVT Physical Exam Const oriented x3 and healthy appearing Orientation / Consciousness: awake HEENT normocephalic Eyes PERRL and conjunctivae normal Neck supple, no JVD and no carotid bruits Chest inspection of chest normal Resp normal respiratory effort and clear to auscultation bilaterally Cardio Palpation: normal PMI Rate: regular rate Rhythm: regular rhythm Heart Sounds: S1 normal and S2 normal Peripheral Pulses: pulses 2+ throughout GI normal to inspection, nondistended, normoactive bowel sounds Extremity normal to inspection and no clubbing, cyanosis or edema Psych mental status grossly normal Assessment & Plan Assessment/Plan (1) Non-STEMI (non-ST elevated myocardial infarction): PLAN: She presents with a non-ST elevation myocardial infarction with elevated troponin at this time. My recommendations will be as follows: * Echocardiogram to assess ventricular function demonstrated preserved ejection fraction * Aspirin * Beta-bridget with carvedilol and I will switch dose to 12.5 mg twice a day * She may eventually need a cardiac catheterization to assess her coronary anatomy, this would be performed in a.m. * (2) Hypertension: PLAN: Her blood pressure appears to be suboptimally controlled at this particular time and I would recommend optimizing the carvedilol dose Add an HELEN inhibitor to her regimen (3) CHF (NYHA class III, ACC/AHA stage C): PLAN: She appears to be in congestive heart failure. The etiology is likely secondary to hypertensive heart disease as well as coronary disease * Will obtain echocardiogram to assess ventricular function * Continue beta-bridget * Start HELEN inhibitor * Intravenous diuresis with Lasix and will currently switch to oral Lasix * Further recommendations will depend on the results of the above test. * * Thank you for allowing me to participate in the care of your patient. Please don't hesitate to call if any issues arise.
[2021-03-04] MEDS: Furosemide 40 MG Tablet PO ×2 (09:28→17:06)
[2021-03-04] MEDS: Ferrous Gluconate 324 MG Tablet PO (09:28)
[2021-03-04] MEDS: Lisinopril 5 MG Tablet PO (09:28)
[2021-03-04] MEDS: guaiFENesin 1,200 MG Tablet 1200 MG PO ×2 (09:28→21:51)
[2021-03-04] MEDS: Carvedilol 12.5 MG Tablet PO ×2 (09:28→21:51)
[2021-03-04] MEDS: Glucerna Shake 120 ML LIQUID PO ×4 (09:28→21:51)
[2021-03-04 11:20] LABS: Bedside Glucose 453 mg/dL (70-110)
[2021-03-04 13:16] LABS: Bedside Glucose 471 mg/dL (70-110)
[2021-03-04] MEDS: Insulin Lispro 100 UNIT/ML INSULN.PEN 20 UNIT SC (13:51)
[2021-03-04 17:16] LABS: Bedside Glucose 239 mg/dL (70-110)
[2021-03-04 17:24] LABS: Vitamin B12 335 pg/mL (211-911)
[2021-03-04 18:11] LABS: Ferritin 117 ng/mL (8-252); Iron 15 ug/dL (50-170); Iron Binding Capacity,Total 231 ug/dL (250-450); PERCENT IRON SATURATION 6.5 % (15.0-55.0)
[2021-03-04] MEDS: Ceftriaxone 1 GM/50 ML BAG IV (21:50)
[2021-03-04] MEDS: Atorvastatin Calcium 40 MG Tablet PO (21:51)
[2021-03-04 22:40] LABS: Bedside Glucose 286 mg/dL (70-110)
[2021-03-05] VITALS (15 sets, daily range): BP systolic 103–164; BP diastolic 59–79; PULSE 60–81; RESP 16–18; TEMP 36.1–37; O2SAT 96–100
[2021-03-05 05:50] LABS: Absolute Lymphocyte Count 0.99 X10^3/uL (0.83-4.51); Absolute Neutrophil Count 12.6 X10^3/uL (2.0-7.7); Basophil# 0.01 X10^3/uL; Basophil% 0.1 % (0-1); Hemoglobin 10.2 g/dL (12.0-15.0); Lymphocyte # 0.99 X10^3/ul (0.83-4.51); Lymphocyte % 7.1 % (19-41); Mean Corp Hgb Conc 31.9 g/dL (32-36); Mean Corpuscular Hgb 26.3 pg (27.0-32.0); Mean Corpuscular Volume 82.5 fL (81-99); Mean Platelet Vol. 9.4 fl (6.2-12.0); Monocyte# 0.22 X10^3/uL; Monocyte% 1.6 % (0-10); NRBC Flagged by Analyzer 0 % (0-5); Neutrophil # 12.56 X10^3/uL (2.7-7.7); Neutrophil % 90.5 % (47-70); Platelet Count 201 K/mm3 (150-450); RBC Distribution Width CV 13.4 % (11.6-14.6); RBC Distribution Width SD 40.4 fl (35.1-43.9); Red Blood Count 3.88 M/mm3 (4.2-5.4); White Blood Count 13.9 K/mm3 (4.4-11.0)
--- NOTE | 2021-03-05 05:55 | EKG12_ITS ---
Test Reason : AM EKG Blood Pressure : / mmHG Vent. Rate : 084 BPM Atrial Rate : 084 BPM P-R Int : 170 ms QRS Dur : 078 ms QT Int : 354 ms P-R-T Axes : 064 -21 243 degrees QTc Int : 418 ms Normal sinus rhythm Septal infarct , age undetermined, cannot be excluded Nonspecific T wave abnormality Abnormal ECG Confirmed by TATY AVILA, GIULIANO ([id number]), supervising film or videotape editor ZEHRA BROOKE ([id number]) on 03/10/2021 9:13:15 AM Referred By: ORESTES Confirmed By:GIULIANO POSEY MD
[2021-03-05 06:08] LABS: ALB/GLOB Ratio 0.7 RATIO (0.9-2.4); AST(SGOT) 22 U/L (15-37); Alanine Aminotransfer ALT/SGPT 18 U/L (13-56); Albumin, Serum 2.3 g/dL (3.2-5.0); Alkaline Phosphatase 46 U/L (45-117); Anion Gap 7 (5-15); BUN 34 mg/dL (7-18); BUN/Creat Ratio 25.6 RATIO (10-20); Calcium,Total 8.3 mg/dL (8.5-10.1); Chloride 100 mmol/L (98-107); Creatinine, Serum 1.33 mg/dL (0.55-1.02); EST Glomerular Filtration Rate 40 mL/min (>60); Est Glom Filt Rate - Afr Amer 49 mL/min (>60); Estimated Creatinine Clearance 25.58 ml/min; Globulin 3.1 g/dL (2.2-4.2); Glucose 105 mg/dL (74-106); Potassium 3.5 mmol/L (3.5-5.1); Protein, Total 5.4 g/dL (6.4-8.2); Sodium Level 136 mmol/L (136-145)
--- NOTE | 2021-03-05 06:22 | PN.HOSP_ITS ---
Objective Data Objective Data Vital Signs: Vital Signs Temp Pulse Resp BP Pulse Ox 98.2 F 62 16 155/73 H 98 03/05/21 04:05 03/05/21 04:05 03/05/21 04:05 03/05/21 04:05 03/05/21 04:05 Oxygen Flow Rate (L/min) 3 Oxygen Delivery Method Nasal Cannula Weight: 153 lb 10.595 oz Body Mass Index (BMI) 27.1 Intake & Output: Intake and Output for Last 24 Hours 03/03/21 03/04/21 03/05/21 23:59 23:59 23:59 Intake Total 1380.35 / 1620.35 930 / 1170 240 / 240 Output Total 200 / 200 200 / 200 Balance 1180.35 / 1420.35 730 / 970 240 / 240 Lab / Micro Data Result Diagrams: 03/05/21 05:35 03/05/21 05:35 Labs: Laboratory Results - last 24 hr 03/04/21 03/04/21 03/04/21 05:14 06:39 11:13 WBC RBC Hgb Hct MCV MCH MCHC RDW Std Deviation RDW Coeff of Tashia Plt Count MPV Immature Gran % (Auto) Neut % (Auto) Lymph % (Auto) [place] % (Auto) Eos % (Auto) Baso % (Auto) Absolute Neuts (auto) Absolute Lymphs (auto) Nucleated RBC % Sodium Potassium Chloride Carbon Dioxide Anion Gap BUN Creatinine Estim Creat Clear Calc Est GFR (MDRD) Af Amer Est GFR (MDRD) Non-Af BUN/Creatinine Ratio Glucose Calcium Iron 15 L TIBC 231 L Iron Saturation 6.5 L Ferritin 117 Total Bilirubin AST ALT Alkaline Phosphatase Total Protein Albumin Globulin Albumin/Globulin Ratio Vitamin B12 Folate Cancelled POC Glucose 251 H 453 H* 03/04/21 03/04/21 03/04/21 13:04 16:05 16:24 WBC RBC Hgb Hct MCV MCH MCHC RDW Std Deviation RDW Coeff of Tashia Plt Count MPV Immature Gran % (Auto) Neut % (Auto) Lymph % (Auto) [place] % (Auto) Eos % (Auto) Baso % (Auto) Absolute Neuts (auto) Absolute Lymphs (auto) Nucleated RBC % Sodium Potassium Chloride Carbon Dioxide Anion Gap BUN Creatinine Estim Creat Clear Calc Est GFR (MDRD) Af Amer Est GFR (MDRD) Non-Af BUN/Creatinine Ratio Glucose Calcium Iron TIBC Iron Saturation Ferritin Total Bilirubin AST ALT Alkaline Phosphatase Total Protein Albumin Globulin Albumin/Globulin Ratio Vitamin B12 335 Folate POC Glucose 471 H* 239 H 03/04/21 03/04/21 03/05/21 16:24 21:47 05:35 WBC 13.9 H RBC 3.88 L Hgb 10.2 L Hct 32.0 L MCV 82.5 MCH 26.3 L MCHC 31.9 L RDW Std Deviation 40.4 RDW Coeff of Tashia 13.4 Plt Count 201 MPV 9.4 Immature Gran % (Auto) 0.700 Neut % (Auto) 90.5 H Lymph % (Auto) 7.1 L [place] % (Auto) 1.6 Eos % (Auto) 0.0 Baso % (Auto) 0.1 Absolute Neuts (auto) 12.6 H Absolute Lymphs (auto) 0.99 Nucleated RBC % 0 Sodium Potassium Chloride Carbon Dioxide Anion Gap BUN Creatinine Estim Creat Clear Calc Est GFR (MDRD) Af Amer Est GFR (MDRD) Non-Af BUN/Creatinine Ratio Glucose Calcium Iron TIBC Iron Saturation Ferritin Total Bilirubin AST ALT Alkaline Phosphatase Total Protein Albumin Globulin Albumin/Globulin Ratio Vitamin B12 Folate 9.60 POC Glucose 286 H 03/05/21 05:35 WBC RBC Hgb Hct MCV MCH MCHC RDW Std Deviation RDW Coeff of Tashia Plt Count MPV Immature Gran % (Auto) Neut % (Auto) Lymph % (Auto) [place] % (Auto) Eos % (Auto) Baso % (Auto) Absolute Neuts (auto) Absolute Lymphs (auto) Nucleated RBC % Sodium 136 Potassium 3.5 Chloride 100 Carbon Dioxide 29.0 Anion Gap 7 BUN 34 H Creatinine 1.33 H Estim Creat Clear Calc 25.58 Est GFR (MDRD) Af Amer 49 L Est GFR (MDRD) Non-Af 40 L BUN/Creatinine Ratio 25.6 H Glucose 105 Calcium 8.3 L Iron TIBC Iron Saturation Ferritin Total Bilirubin 0.40 AST 22 ALT 18 Alkaline Phosphatase 46 Total Protein 5.4 L Albumin 2.3 L Globulin 3.1 Albumin/Globulin Ratio 0.7 L Vitamin B12 Folate POC Glucose Micro: Microbiology 03/04/21 18:54 Stool Stool Occult Blood (NICOLAS) - Final Occult Blood Positive 03/03/21 06:17 Urine, Clean Catch Urine Culture - Preliminary Culture exhibits no growth. 03/03/21 03:55 Mucosa - Nasopharyngeal Respiratory Panel (PCR) - Final Parainfluenza 3 03/03/21 08:00 Interface Orders SARS-CoV-2 Antigen (Rapid) - Final 03/03/21 06:17 Urine, Clean Catch Legionella Antigen - Final 03/03/21 06:17 Urine, Clean Catch Streptococcus pneumoniae Antigen (M - Final
[2021-03-05] MEDS: 0.9% Saline Lock 10 ML Syringe IV (06:35)
[2021-03-05] MEDS: Aspirin 81 MG TAB.CHEW PO (06:35)
[2021-03-05 06:51] LABS: Bedside Glucose 114 mg/dL (70-110)
--- NOTE | 2021-03-05 09:50 | NURSING ---
Report called to Genesis Kyle RN.
--- NOTE | 2021-03-05 11:15 | PN.CARD_ITS ---
Subjective Subjective: Seen and evaluated. Appears to be doing well today Objective Data Vital Signs: Vital Signs Temp Pulse Resp BP Pulse Ox 98.6 F 70 16 164/79 H 98 03/05/21 06:41 03/05/21 07:00 03/05/21 06:41 03/05/21 06:41 03/05/21 07:06 Oxygen Flow Rate (L/min) 3 Oxygen Delivery Method Nasal Cannula Weight: 153 lb 10.595 oz Body Mass Index (BMI) 27.1 Intake & Output: Intake and Output for Last 24 Hours 03/03/21 03/04/21 03/05/21 23:59 23:59 23:59 Intake Total 1380.35 / 1620.35 930 / 1170 240 / 240 Output Total 200 / 200 200 / 200 Balance 1180.35 / 1420.35 730 / 970 240 / 240 Lab / Micro Data Result Diagrams: 03/05/21 05:35 03/05/21 05:35 Labs: Laboratory Results - last 24 hr 03/04/21 03/04/21 03/04/21 05:14 11:13 13:04 WBC RBC Hgb Hct MCV MCH MCHC RDW Std Deviation RDW Coeff of Tashia Plt Count MPV Immature Gran % (Auto) Neut % (Auto) Lymph % (Auto) [place] % (Auto) Eos % (Auto) Baso % (Auto) Absolute Neuts (auto) Absolute Lymphs (auto) Nucleated RBC % Sodium Potassium Chloride Carbon Dioxide Anion Gap BUN Creatinine Estim Creat Clear Calc Est GFR (MDRD) Af Amer Est GFR (MDRD) Non-Af BUN/Creatinine Ratio Glucose Calcium Iron 15 L TIBC 231 L Iron Saturation 6.5 L Ferritin 117 Total Bilirubin AST ALT Alkaline Phosphatase Total Protein Albumin Globulin Albumin/Globulin Ratio Vitamin B12 Folate Cancelled POC Glucose 453 H* 471 H* 03/04/21 03/04/21 03/04/21 16:05 16:24 16:24 WBC RBC Hgb Hct MCV MCH MCHC RDW Std Deviation RDW Coeff of Tashia Plt Count MPV Immature Gran % (Auto) Neut % (Auto) Lymph % (Auto) [place] % (Auto) Eos % (Auto) Baso % (Auto) Absolute Neuts (auto) Absolute Lymphs (auto) Nucleated RBC % Sodium Potassium Chloride Carbon Dioxide Anion Gap BUN Creatinine Estim Creat Clear Calc Est GFR (MDRD) Af Amer Est GFR (MDRD) Non-Af BUN/Creatinine Ratio Glucose Calcium Iron TIBC Iron Saturation Ferritin Total Bilirubin AST ALT Alkaline Phosphatase Total Protein Albumin Globulin Albumin/Globulin Ratio Vitamin B12 335 Folate 9.60 POC Glucose 239 H 03/04/21 03/05/21 03/05/21 21:47 05:35 05:35 WBC 13.9 H RBC 3.88 L Hgb 10.2 L Hct 32.0 L MCV 82.5 MCH 26.3 L MCHC 31.9 L RDW Std Deviation 40.4 RDW Coeff of Tashia 13.4 Plt Count 201 MPV 9.4 Immature Gran % (Auto) 0.700 Neut % (Auto) 90.5 H Lymph % (Auto) 7.1 L [place] % (Auto) 1.6 Eos % (Auto) 0.0 Baso % (Auto) 0.1 Absolute Neuts (auto) 12.6 H Absolute Lymphs (auto) 0.99 Nucleated RBC % 0 Sodium 136 Potassium 3.5 Chloride 100 Carbon Dioxide 29.0 Anion Gap 7 BUN 34 H Creatinine 1.33 H Estim Creat Clear Calc 25.58 Est GFR (MDRD) Af Amer 49 L Est GFR (MDRD) Non-Af 40 L BUN/Creatinine Ratio 25.6 H Glucose 105 Calcium 8.3 L Iron TIBC Iron Saturation Ferritin Total Bilirubin 0.40 AST 22 ALT 18 Alkaline Phosphatase 46 Total Protein 5.4 L Albumin 2.3 L Globulin 3.1 Albumin/Globulin Ratio 0.7 L Vitamin B12 Folate POC Glucose 286 H 03/05/21 06:33 WBC RBC Hgb Hct MCV MCH MCHC RDW Std Deviation RDW Coeff of Tashia Plt Count MPV Immature Gran % (Auto) Neut % (Auto) Lymph % (Auto) [place] % (Auto) Eos % (Auto) Baso % (Auto) Absolute Neuts (auto) Absolute Lymphs (auto) Nucleated RBC % Sodium Potassium Chloride Carbon Dioxide Anion Gap BUN Creatinine Estim Creat Clear Calc Est GFR (MDRD) Af Amer Est GFR (MDRD) Non-Af BUN/Creatinine Ratio Glucose Calcium Iron TIBC Iron Saturation Ferritin Total Bilirubin AST ALT Alkaline Phosphatase Total Protein Albumin Globulin Albumin/Globulin Ratio Vitamin B12 Folate POC Glucose 114 H Micro: Microbiology 03/03/21 06:17 Urine, Clean Catch Urine Culture - Final Culture exhibits no growth. 03/04/21 18:54 Stool Stool Occult Blood (NICOLAS) - Final Occult Blood Positive 03/03/21 03:55 Mucosa - Nasopharyngeal Respiratory Panel (PCR) - Final Parainfluenza 3 03/03/21 08:00 Interface Orders SARS-CoV-2 Antigen (Rapid) - Final 03/03/21 06:17 Urine, Clean Catch Legionella Antigen - Final 03/03/21 06:17 Urine, Clean Catch Streptococcus pneumoniae Antigen (M - Final Cardiology Labs/Tests 03/04/21 05:14: Iron 15 L, TIBC 231 L, Iron Saturation 6.5 L, Ferritin 117 03/05/21 05:35: WBC 13.9 H, RBC 3.88 L, Hgb 10.2 L, Hct 32.0 L, MCV 82.5, MCH 26.3 L, MCHC 31.9 L, Plt Count 201, MPV 9.4, Immature Gran % (Auto) 0.700, Neut % (Auto) 90.5 H, Lymph % (Auto) 7.1 L, [place] % (Auto) 1.6, Eos % (Auto) 0.0, Baso % (Auto) 0.1, Absolute Neuts (auto) 12.6 H, Nucleated RBC % 0 03/05/21 05:35: Sodium 136, Potassium 3.5, Chloride 100, Carbon Dioxide 29.0, Anion Gap 7, BUN 34 H, Creatinine 1.33 H, Est GFR (MDRD) Af Amer 49 L, Est GFR (MDRD) Non-Af 40 L, BUN/Creatinine Ratio 25.6 H, Glucose 105, Calcium 8.3 L, Total Bilirubin 0.40 Rhythm: EKG: ECHO: Stress Test: Cardiac Cath: PCI: CT Surgery: Holter monitor: EPS: PPM: CXR: Chest CT Scan: Physical Exam Const oriented x3 and healthy appearing Orientation / Consciousness: awake HEENT normocephalic Eyes PERRL and conjunctivae normal Neck supple, no JVD and no carotid bruits Chest inspection of chest normal Resp normal respiratory effort and clear to auscultation bilaterally Cardio Palpation: normal PMI Rate: regular rate Rhythm: regular rhythm Heart Sounds: S1 normal and S2 normal Peripheral Pulses: pulses 2+ throughout GI normal to inspection, nondistended, normoactive bowel sounds Extremity normal to inspection and no clubbing, cyanosis or edema Psych mental status grossly normal Assessment & Plan Assessment/Plan (1) Non-STEMI (non-ST elevated myocardial infarction): PLAN: She presents with a non-ST elevation myocardial infarction with elevated troponin at this time. * Cardiac catheterization demonstrated the following: Normal left main coronary artery. Left anterior descending artery with mild diffuse disease. Left circumflex artery with moderate disease involving the obtuse marginal vessel. Totally occluded ostial right coronary artery with left to right collaterals filling almost the entire vessel. Preserved left ventricular systolic function. Based on the above I would recommend aggressive risk factor modification and medical therapy. (2) Hypertension: PLAN: Her blood pressure appears to be suboptimally controlled at this particular time and I would recommend optimizing the carvedilol dose Add an HELEN inhibitor to her regimen Her blood pressure is severely elevated. Would recommend aggressive treatment. Would also add calcium channel bridget to the regimen (3) CHF (NYHA class III, ACC/AHA stage C): PLAN: She appears to be in congestive heart failure. The etiology is likely secondary to hypertensive heart disease as well as coronary disease * Will continue the current therapy as noted above as well as instituting diuretic therapy. * * Thank you for allowing me to participate in the care of your patient. Please don't hesitate to call if any issues arise.
--- NOTE | 2021-03-05 11:15 | CL.D_ITS ---
Patient Name: JUAN CHUNG Study Date: 03/05/2021 Performing: Chino Hayden MD Ht: 62.99 inches 160 cm : 1935 Wt: 154.32 lbs 70 kg Age: 86 Gender: female BSA: 1.73 PROCEDURE(S) PERFORMED [id number] CLINICAL PROFILE AND INDICATIONS Indications: Suspected CAD Heart Failure: NYHA Class: 2, Newly Diagnosed: Yes, Heart Failure Type: Diastolic CAD Presentations: Symptom unlikely to be ischemic. CONCLUSIONS Coronary artery disease with a totally occluded right coronary artery with [id number] collaterals and moderate disease noted of a circumflex artery. RECOMMENDATIONS Medical therapy DESCRIPTION OF PROCEDURE The patient arrived to the procedure lab. The risks and benefits of the procedure as well as a full d escription of our services here and current unavailability of surgical backup were fully explained to the patient and/or their significant other prior to the catheterization. The Timeout was completed, verifying the correct patient and procedure. The patient's procedural site was prepped and draped in the usual fashion. Local anesthetic was given subcutaneously to right radial region with Lidocaine 2% . Using a modified Seldinger technique, arterial access was obtained via the right radial artery, a 6 Fr sheath was inserted. Left Coronary Artery selective angiography was performed in multiple views u sing a 5 Fr. 4.0 [place] catheter.The arterial sheath was pulled and a TR Band was applied for hemostas is-14 cc air CORONARY ANGIOGRAPHY DOMINANCE: Right Dominant LEFT HEART ASSESSMENT Left Ventricular Ejection Fraction: by Echo 60 % Normal LV wall motion Normal Left Ventricular systolic function LEFT MAIN: Mild calcification LEFT ANTERIOR DESCENDING ARTERY: Mild luminal irregularities less than 30% CIRCUMFLEX ARTERY: OM 1: Mid - Moderate luminal irregularities up to 50% RIGHT CORONARY ARTERY: OSTIAL RCA: is occluded COLLATERAL FLOW: Collateral flow from Left to Right COMPLICATIONS No Complications PROCEDURE MEDICATIONS Versed 1 mg IV Fentanyl 50 mcg IV Versed 1 mg IV Oxygen: 3 L/min via nasal cannula Heparin diluted in 23cc Heparinized saline. Patient given 10cc IA of this solution. 03/05/2021 10:53:0 9 Verapamil 2.5mg, Ntg 100mcgs, 2000 units of Heparin diluted in 23cc Heparinized saline. Patient give n 10cc IA of this solution. 03/05/2021 10:53:09 SUMMARY OF HEMODYNAMIC DATA Time AIR REST ECG 10:36:06 AO 259/71 (139) SA 10:49:33 AO 167/60 (101) 10:54:25 AO 176/78 (123) 11:06:02 Signed By Chino Hayden MD On 03/05/2021 11:14:26 Chino Hayden MD
--- NOTE | 2021-03-05 12:05 | DCINST_ITS ---
Discharge Instructions Diet Discharge Diet: 1800 Calorie Control Diet (1800 ADA/cardiac diet recommended.) Activity Discharge Activity: Return to Normal Activity (May return to normal activities once catheterization parameters complete.) May resume sexual activity in: 10-14 days Weight Bearing Status: Weight bearing as tolerated Dressing / Incision Call your doctor if your incision/area has: Continuous Slow Oozing, Sudden Increased Bleeding, Increased Pain/ Swelling, Increased Redness, Foul Smelling Discharge and Swelling at the incision site Call your doctor if you observe: Fever of 101 or Higher, Inability to urinate, Shortness of breath, Dizziness, Fainting spells, Swelling in the ankles, Chest pain, Uncontrolled pain and - (Keep a daily weight log and if you note your weight increasing >5 lbs above baseline call your Stake Driver for direction.) Follow Up Care Test Results: Test results from this visit will be discussed in further detail at your follow-up appointment, if applicable. Discharge Plan Admission Admit Date/Time: 03/03/21 01:59 Primary Reason for Your Visit: NSTEMI, Acute Diastolic CHF, Acute UTI, Acute Bronchitis (Parainfluenza) Attending Provider: Karen Landry Primary Care Provider: Joaquin Caro Consulting Providers: Chino Hayden Instructions Patient Instructions: Taking Medication to Control Heart Failure, What Is Heart Failure?, Heart Failure: Warning Signs of a Flare-Up, Heart Failure: Tracking Your Weight, Urinary Tract Infections in Women, Heart Attack, Know the Medications You're Taking, Living Well After a Heart Attack Additional Instructions / Restrictions: Please have repeat basic metabolic panel at follow-up with your primary care physician. At discharge the urine culture at the outside facility prior to transfer to [facility] has not finalized your urine culture species or sensitivities. Once these are known if your current discharge antibiotic is not appropriate you will be contacted. During the admission your HgbA1c was obtained and noted to be 8.5%. Please continue to adjust medications with your primary care physician and improve your lifestyle/diet interventions to reduce this level. Please also monitor your blood pressure and heart rate and bring this log to your follow-up with your primary care physician and cardiology visit. Also, take your daily weight and keep note of this also. Discharge Orders/Prescriptions Prescriptions: New furosemide 40 mg Tablet 40 mg PO BID@1000,1800 30 Days Qty: 60 RF: 1 carvedilol 25 mg Tablet 25 mg PO BID 30 Days Qty: 60 RF: 1 lisinopril 20 mg Tablet 20 mg PO DAILY 30 Days Qty: 30 RF: 1 amlodipine 5 mg Tablet 5 mg PO DAILY 30 Days Qty: 30 RF: 1 Mucus Relief ER 1,200 mg Tablet Extended Release 12hr 1,200 mg PO BID 10 Days Qty: 20 RF: 0 prednisone 20 mg tablet 40 mg PO DAILY 5 Days Qty: 10 RF: 0 albuterol sulfate 90 mcg/actuation HFA aerosol inhaler 1 - 2 puff inhalation Q4H PRN (Reason: shortness of breath or wheezing) Qty: 6.7 RF: 0 cephalexin 500 mg capsule 500 mg PO Q8H 4 Days Qty: 12 RF: 0 Continued hydrocodone-acetaminophen 5-325 mg tablet 1 tab PO Q6H PRN PRN (Reason: Pain) RF: 0 simvastatin 80 mg Tablet 80 mg PO DAILY RF: 0 potassium chloride 20 mEq tablet,ER particles/crystals 20 meq PO DAILY RF: 0 esomeprazole magnesium 40 mg capsule,delayed release(DR/EC) 20 mg PO QODAY RF: 0 Novolin R Regular U-100 Insuln 100 unit/mL solution 40 - 50 unit subcut DAILY RF: 0 glimepiride 4 mg tablet 4 mg PO DAILY RF: 0 aspirin 81 mg Tablet 81 mg PO DAILY RF: 0 cholestyramine (with sugar) 4 gram powder 1 ea PO DAILY PRN (Reason: Diarrhea) RF: 0 ferrous gluconate 324 mg (36 mg iron) Tablet 324 mg PO DAILY RF: 0 Held metformin 500 mg Tablet 500 mg PO DAILY RF: 0 Hold Instructions: Resume on 03/08/21. Please hold metformin given recent contrast usage. May resume at noted date but also have repeat renal function assessment with your primary care to assess if decreased or altered dosing is necessarsy. prednisone 10 mg Tablet 10 mg PO QODAY RF: 0 Hold Instructions: Resume on 03/10/21. Please hold your chronic prednisone until burst prednisone therapy has been completed. Discontinued furosemide 40 mg tablet 40 mg PO DAILY RF: 0 carvedilol [Coreg] 6.25 mg tablet 9.375 mg PO DAILY RF: 0 Referrals / Follow Up: Joaquin Caro MD [Primary Care Provider] - (Follow-up within 3-5 days to review admission.) Joann Saravia, PA [PHYSICIAN [employer]] - (Follow-up in 1-2 week, recent admit and saw Dr. Hayden.) Disposition Disposition (needs filled in before D/C Order can be placed): Home, self care
[2021-03-05] MEDS: Ferrous Gluconate 324 MG Tablet PO (12:13)
[2021-03-05] MEDS: guaiFENesin 1,200 MG Tablet 1200 MG PO (12:13)
[2021-03-05] MEDS: Furosemide 40 MG Tablet PO (12:14)
[2021-03-05] MEDS: Insulin Lispro 100 UNIT/ML INSULN.PEN SC (12:14)
--- NOTE | 2021-03-05 12:25 | PCM.DC.SUM ---
Providers Date of Admission: 03/03/21 Primary Care Physician: Dr. Joaquin Caro MD Consultations 03/03/21 06:30 Consult: Cardiology Routine Consulting Provider: Chino Hayden Reason for Consult: NSTEMI, elevated troponin EMERGENT Consult: No MD Notified: Yes Date Notified:: 03/03/21 Time Notified: 06:30 Method of Notification: Verbal Method of Consult:: In-Person Comments:: JAIRON 4, HEART 6 Reason For Visit: PNEUMONIA, UTI, NSTEMI Diagnosis Discharge Diagnosis (1) Non-STEMI (non-ST elevated myocardial infarction): Status: Acute Code(s): I21.4 - Non-ST elevation (NSTEMI) myocardial infarction (2) Hypertension: Status: Chronic Code(s): I10 - Essential (primary) hypertension (3) CHF (NYHA class III, ACC/AHA stage C): Status: Acute Code(s): I50.9 - Heart failure, unspecified Plan: DISCHARGE DIAGNOSES: 1. Acute Parainfluenza III Viral Syndrome, Acute Bronchitis with Acute on Chronic COPD exacerbation w/ Chronic Hypoxic Respiratory Failure (3L NC) 2. Acute NSTEMI with CAD (no PCI, medical therapy s/p cardiac catheterization) 3. Acute Decompensated CHF, Diastolic w/ noted valvular heart disease (mild to moderate aortic stenosis) 4. Acute Urinary Tract Infection (OSH UCx preliminary at discharge w/ noted >100,000 CFU enteric bacilli) 5. Suspected Chronic kidney disease stage III 6. Hypertension 7. Hyperlipidemia 8. Diabetes mellitus type II with hyperglycemia (Admission hemoglobin A1c 8.5%) 9. Former tobacco use 10. GERD 11. Normocytic anemia (Mixed, component Fe deficinency and AOCD) 12. CODE status: DNR-CCA, no intubation status Medications at Discharge Home Medications Novolin R Regular U-100 Insuln 40 - 50 unit SUBCUT DAILY 03/03/21 aspirin 81 mg PO DAILY 03/03/21 cholestyramine (with sugar) 1 ea PO DAILY PRN 03/03/21 esomeprazole magnesium 20 mg PO QODAY 03/03/21 ferrous gluconate 324 mg PO DAILY 03/03/21 glimepiride 4 mg PO DAILY 03/03/21 hydrocodone-acetaminophen 1 tab PO Q6H PRN PRN 03/03/21 metformin 500 mg PO DAILY 03/03/21 potassium chloride 20 meq PO DAILY 03/03/21 prednisone 10 mg PO QODAY 03/03/21 simvastatin 80 mg PO DAILY 03/03/21 albuterol sulfate 1 - 2 puff INHALATION Q4H PRN #6.7 g 03/05/21 amlodipine 5 mg PO DAILY 30 Days #30 tab 03/05/21 carvedilol 25 mg PO BID 30 Days #60 tab 03/05/21 cephalexin 500 mg PO Q8H 4 Days #12 cap 03/05/21 ferrous gluconate 324 mg PO DAILY 30 Days #30 tab 03/05/21 furosemide 40 mg PO BID@1000,1800 30 Days #60 tab 03/05/21 guaifenesin [Mucus Relief ER] 1,200 mg PO BID 10 Days #20 tab 03/05/21 lisinopril 20 mg PO DAILY 30 Days #30 tab 03/05/21 prednisone 40 mg PO DAILY 5 Days #10 tab 03/05/21 Hospital Course Operations None Procedures 2-D Echocardiogram, Cardiac catheterization and EKG Summary of Care Provided Minutes Spent on Discharge: 35 Hospital Course: The patient is an 86 y/o F w/ PMHx: Chronic anemia, GERD, HTN, HLD, Diabetes mellitus type II, Former Tobacco use, Chronic COPD w/ Chronic Hypoxic Respiratory Failure (3L NC) who presented to the [facility] on 03/03/21 w/ history of transfer from OSH ED [place] with onset dyspnea worsening x 4 days with elevated troponin, evidence UTI and at that time concern for PNA. OSH [place] ED with CTPA with cardiomegaly with small bilateral pleural effusions and adjacent compressive atelectasis as well as mild ground-glass opacities, Covid negative, BNP 583. Patient was administered Levaquin IV dose at [place] for concern for UTI and pneumonia. Admitted to PCU, maintained on oxygen with wean as tolerated to home chronic supplementation, continued ATC duonebs, PRN albuterol, maintained on Rocephin and Azithromycin initially but given respiratory viral panel with + source likely viral component and CTPA findings overload as noted #3 with CBC upon current presentation with WBC 4.8, hemoglobin 11.8, platelet 171 with no left shift with lymphopenia 03/03/21 D/C azithromycin (continue rocephin for concurrently noted UTI), Urine antigens negative. Given wheezing a suspected acute on chronic concurrent COPD exacerbation following transition to [facility] added solumedrol with notable improvement with oral prednisone burst upon discharge. EKG w/ sinus rhythm with evidence prior anterior septal infarct age undetermined, CTPA as noted with cardiomegaly with small bilateral pleural effusions and adjacent compressive atelectasis as well as mild groundglass opacities with no evidence of pulmonary emboli. Continue treatment as noted #1, Trop elevated, 0.95 at outside facility with also elevated D-dimer but age corrected is appropriate. Continued serial cardiac enzymes with [facility] trend 1.40->1.110->0.749. ECHO with normal LV size, normal LV systolic function, EF 65%, mild focal AV calcification, mean AV gradient 40 mmHg, mild to moderate aortic stenosis, PASP 38 mmHg, severe concentric LVH, infiltrative disease cannot be excluded. Mag supplemented. Maintained on therapeutic lovenox initially given NSTEMI until trop trended downward. Continued medical management w/ asa, BB, ACEI, statin w/ AM FLP with total cholesterol 166, triglycerides 147, LDL 69, VLDL 29, HDL 68. 03/05/2021 cardiac catheterization w/ normal left main coronary artery, left anterior descending artery with mild diffuse disease, left circumflex artery with moderate disease involving the obtuse marginal vessel, totoally occluded ostial right coronary artery with left to right collaterals filling almost the entire vessel with preserved left ventricular systolic function. Given concurrent CHF presentation, patient initiated on IV lasix diuresis per Cardiology w/ 03/04/21 transition to oral lasix regimen continued at discharge also. TSH 1.55 and magnesium level 1.5 with supplementation given, repeat 3.2. UA upon ED evaluation remarkable, despite urinalysis urine culture currently exhibiting no growth however UCx at OSH ED w/ noted > 100,000 CFU enteric bacilli with final species and sensitivities pending at discharge, treated with IV rocephin with keflex transition at discharge. Admission BUN/creatinine 17/1.25, repeat 03/04/2021 BUN/creatinine 27/1.43-->03/05/21 BUN/Cr 34/1.33 with suspected likely underlying component CKD stage III with requested repeat BMP at follow-up with PCP. During admission noted hyperglycemia, hemoglobin A1c 8.5%, nutrition consultation for education and teaching, ADA diet, accu checks w/ ISS w/ recommended continued close follow-up with PCP to adjust medications and encourage ongoing lifestyle/diet changes. Admission hemoglobin 11.8, repeat 03/04/2021 9.8, obtained iron panel, ferritin, vitamin B12 and folic acid with evidence mixed etiology AOCD/Fe deficiency with also normal but lower end B12 and folic acid with iron supplementation initiated at discharge. Given clinical improvement, clearance per Cardiology patient discharged to home in improved condition on altered medications per Cardiology, steroid burst, PRN albuterol, keflex and Fe supplementation with Cardiology and PCP follow-up. DAY OF DISCHARGE PROGRESS NOTE: Subjective: Patient without acute event overnight per self and nursing report. Patient denied any further marked dyspnea but did state occasional cough but still improving. Patient currently on home 3 L supplementation which is chronic. Patient denies any onset of any chest discomfort. Patient remains eager for discharge. Patient denies fever, chills, nausea, emesis, abdominal pain, chest pain or dyspnea. Patient agreeable to discharge to home. Patient will be discharged with follow-up with primary care physician within 3-5 days in addition to Cardiology follow-up closely. Objective: T 97, heart rate 81, BP 160/79, respiratory rate 16, 96% on 3 L nasal cannula. Physical Examination: General: awake, alert, oriented x 3 and cooperative, seated upright in the PCU bed in no apparent distress. Skin: normal color, turgor, no icterus, cyanosis. HEENT: AT/NC, EOMI, PERRLA, MMM. Lungs: CTA bilaterally, moderate effort, mild decrease BL bases, no rales, ronchi or wheezing. Heart: Regular rate and rhythm; no gallop, rub audible, + SM. Abdomen: soft, NTTP, ND, normal BS. Extremities: no cyanosis, clubbing, or edema. Neurological: patient awake, alert, oriented x 3; cognitive function intact; pupils equally reactive to light and accomodation; cranial nerves II-XII grossly normal, moving all 4 extremities, no focal deficits, strength improving, mildly global decrease secondary to acute presentation but significantly improved since initial presentation. Psychiatric: affect appears normal, no acute evidence of depressive or anxiety feelings. Assessment and Plan: Please see hospital summary above. ABG / Lab / Microbiology Data Result Diagrams: 03/05/21 05:35 03/05/21 05:35 Laboratory: Laboratory Results - last 24 hr 03/04/21 03/04/21 03/04/21 05:14 13:04 16:05 WBC RBC Hgb Hct MCV MCH MCHC RDW Std Deviation RDW Coeff of Tashia Plt Count MPV Immature Gran % (Auto) Neut % (Auto) Lymph % (Auto) Clarke % (Auto) Eos % (Auto) Baso % (Auto) Absolute Neuts (auto) Absolute Lymphs (auto) Nucleated RBC % Sodium Potassium Chloride Carbon Dioxide Anion Gap BUN Creatinine Estim Creat Clear Calc Est GFR (MDRD) Af Amer Est GFR (MDRD) Non-Af BUN/Creatinine Ratio Glucose Calcium Iron 15 L TIBC 231 L Iron Saturation 6.5 L Ferritin 117 Total Bilirubin AST ALT Alkaline Phosphatase Total Protein Albumin Globulin Albumin/Globulin Ratio Vitamin B12 Folate Cancelled POC Glucose 471 H* 239 H 03/04/21 03/04/21 03/04/21 16:24 16:24 21:47 WBC RBC Hgb Hct MCV MCH MCHC RDW Std Deviation RDW Coeff of Tashia Plt Count MPV Immature Gran % (Auto) Neut % (Auto) Lymph % (Auto) Clarke % (Auto) Eos % (Auto) Baso % (Auto) Absolute Neuts (auto) Absolute Lymphs (auto) Nucleated RBC % Sodium Potassium Chloride Carbon Dioxide Anion Gap BUN Creatinine Estim Creat Clear Calc Est GFR (MDRD) Af Amer Est GFR (MDRD) Non-Af BUN/Creatinine Ratio Glucose Calcium Iron TIBC Iron Saturation Ferritin Total Bilirubin AST ALT Alkaline Phosphatase Total Protein Albumin Globulin Albumin/Globulin Ratio Vitamin B12 335 Folate 9.60 POC Glucose 286 H 03/05/21 03/05/21 03/05/21 05:35 05:35 06:33 WBC 13.9 H RBC 3.88 L Hgb 10.2 L Hct 32.0 L MCV 82.5 MCH 26.3 L MCHC 31.9 L RDW Std Deviation 40.4 RDW Coeff of Tashia 13.4 Plt Count 201 MPV 9.4 Immature Gran % (Auto) 0.700 Neut % (Auto) 90.5 H Lymph % (Auto) 7.1 L Clarke % (Auto) 1.6 Eos % (Auto) 0.0 Baso % (Auto) 0.1 Absolute Neuts (auto) 12.6 H Absolute Lymphs (auto) 0.99 Nucleated RBC % 0 Sodium 136 Potassium 3.5 Chloride 100 Carbon Dioxide 29.0 Anion Gap 7 BUN 34 H Creatinine 1.33 H Estim Creat Clear Calc 25.58 Est GFR (MDRD) Af Amer 49 L Est GFR (MDRD) Non-Af 40 L BUN/Creatinine Ratio 25.6 H Glucose 105 Calcium 8.3 L Iron TIBC Iron Saturation Ferritin Total Bilirubin 0.40 AST 22 ALT 18 Alkaline Phosphatase 46 Total Protein 5.4 L Albumin 2.3 L Globulin 3.1 Albumin/Globulin Ratio 0.7 L Vitamin B12 Folate POC Glucose 114 H Microbiology: Microbiology 03/03/21 06:17 Urine Culture - Final Urine, Clean Catch Culture exhibits no growth. 03/04/21 18:54 Stool Occult Blood (NICOLAS) - Final Stool Occult Blood Positive Microbiology 03/03/21 06:17 Urine, Clean Catch Urine Culture - Final Culture exhibits no growth. 03/04/21 18:54 Stool Stool Occult Blood (NICOLAS) - Final Occult Blood Positive 03/03/21 03:55 Mucosa - Nasopharyngeal Respiratory Panel (PCR) - Final Parainfluenza 3 03/03/21 08:00 Interface Orders SARS-CoV-2 Antigen (Rapid) - Final 03/03/21 06:17 Urine, Clean Catch Legionella Antigen - Final 03/03/21 06:17 Urine, Clean Catch Streptococcus pneumoniae Antigen (M - Final D/C Instructions Discharge Diet: 1800 Calorie Control Diet (1800 ADA/cardiac diet recommended.) Discharge Activity: Return to Normal Activity (May return to normal activities once catheterization parameters complete.) May resume sexual activity in: 10-14 days Weight Bearing Status: Weight bearing as tolerated Call your doctor if your incision/area has: Continuous Slow Oozing, Sudden Increased Bleeding, Increased Pain/ Swelling, Increased Redness, Foul Smelling Discharge and Swelling at the incision site Call your doctor if you observe: Fever of 101 or Higher, Inability to urinate, Shortness of breath, Dizziness, Fainting spells, Swelling in the ankles, Chest pain, Uncontrolled pain and - (Keep a daily weight log and if you note your weight increasing >5 lbs above baseline call your Global Security Architect for direction.) Meaningful Use Info Meaningful Use Diagnoses (Choose all that apply): AMI and CHF AMI/Post PCI/Angioplasty Aspirin given w/in 24hrs of arrival?: Yes ASA at discharge?: Yes Antiplatelet Therapy at Discharge:: No Reason Antiplatelet Therapy not ordered:: On ASA only. Statins at discharge?: Yes Apollo/ARB at discharge?: Yes Beta Nicolas at discharge?: Yes Done w/ Acute IL measure.: Yes Documented LVEF (%): 65 CHF APOLLO/ARB ordered at discharge?: Yes Documented LVEF (%): 65 Discharge Plan Admission Admit Date/Time: 03/03/21 01:59 Primary Reason for Your Visit: NSTEMI, Acute Diastolic CHF, Acute UTI, Acute Bronchitis (Parainfluenza) Attending Provider: Karen Landry Primary Care Provider: Joaquin Caro Consulting Providers: Chino Hayden Instructions Patient Instructions: Taking Medication to Control Heart Failure, What Is Heart Failure?, Heart Failure: Warning Signs of a Flare-Up, Heart Failure: Tracking Your Weight, Urinary Tract Infections in Women, Heart Attack, Know the Medications You're Taking, Living Well After a Heart Attack Additional Instructions / Restrictions: Please have repeat basic metabolic panel at follow-up with your primary care physician. At discharge the urine culture at the outside facility prior to transfer to [facility] has not finalized your urine culture species or sensitivities. Once these are known if your current discharge antibiotic is not appropriate you will be contacted. During the admission your HgbA1c was obtained and noted to be 8.5%. Please continue to adjust medications with your primary care physician and improve your lifestyle/diet interventions to reduce this level. Please also monitor your blood pressure and heart rate and bring this log to your follow-up with your primary care physician and cardiology visit. Also, take your daily weight and keep note of this also. Discharge Orders/Prescriptions Prescriptions: New furosemide 40 mg Tablet 40 mg PO BID@1000,1800 30 Days Qty: 60 RF: 1 carvedilol 25 mg Tablet 25 mg PO BID 30 Days Qty: 60 RF: 1 lisinopril 20 mg Tablet 20 mg PO DAILY 30 Days Qty: 30 RF: 1 amlodipine 5 mg Tablet 5 mg PO DAILY 30 Days Qty: 30 RF: 1 Mucus Relief ER 1,200 mg Tablet Extended Release 12hr 1,200 mg PO BID 10 Days Qty: 20 RF: 0 prednisone 20 mg tablet 40 mg PO DAILY 5 Days Qty: 10 RF: 0 albuterol sulfate 90 mcg/actuation HFA aerosol inhaler 1 - 2 puff inhalation Q4H PRN (Reason: shortness of breath or wheezing) Qty: 6.7 RF: 0 cephalexin 500 mg capsule 500 mg PO Q8H 4 Days Qty: 12 RF: 0 ferrous gluconate 324 mg (38 mg iron) tablet 324 mg PO DAILY 30 Days Qty: 30 RF: 0 Continued hydrocodone-acetaminophen 5-325 mg tablet 1 tab PO Q6H PRN PRN (Reason: Pain) RF: 0 simvastatin 80 mg Tablet 80 mg PO DAILY RF: 0 potassium chloride 20 mEq tablet,ER particles/crystals 20 meq PO DAILY RF: 0 esomeprazole magnesium 40 mg capsule,delayed release(DR/EC) 20 mg PO QODAY RF: 0 Novolin R Regular U-100 Insuln 100 unit/mL solution 40 - 50 unit subcut DAILY RF: 0 glimepiride 4 mg tablet 4 mg PO DAILY RF: 0 aspirin 81 mg Tablet 81 mg PO DAILY RF: 0 cholestyramine (with sugar) 4 gram powder 1 ea PO DAILY PRN (Reason: Diarrhea) RF: 0 ferrous gluconate 324 mg (36 mg iron) Tablet 324 mg PO DAILY RF: 0 Held metformin 500 mg Tablet 500 mg PO DAILY RF: 0 Hold Instructions: Resume on 03/08/21. Please hold metformin given recent contrast usage. May resume at noted date but also have repeat renal function assessment with your primary care to assess if decreased or altered dosing is necessarsy. prednisone 10 mg Tablet 10 mg PO QODAY RF: 0 Hold Instructions: Resume on 03/10/21. Please hold your chronic prednisone until burst prednisone therapy has been completed. Discontinued furosemide 40 mg tablet 40 mg PO DAILY RF: 0 carvedilol [Coreg] 6.25 mg tablet 9.375 mg PO DAILY RF: 0 Referrals / Follow Up: Joaquin Caro MD [Primary Care Provider] - (Follow-up within 3-5 days to review admission.) Joann Saravia PA [PHYSICIAN VEHICLE SERVICE AGENT] - (Follow-up in 1-2 week, recent admit and saw Dr. Hayden.) Disposition Disposition (needs filled in before D/C Order can be placed): Home, self care Visit Charges Inpatient E&M: [id number] Disch Hosp
[2021-03-05] MEDS: Pantoprazole Sodium 20 MG Tablet PO (12:32)
[2021-03-05 12:51] LABS: Bedside Glucose 160 mg/dL (70-110)
== END 2021-03-05 17:20 | disposition home or self-care (01) | DRG 280 ==
PROVIDERS: Nurse Practitioner Family; Admitting Provider Hospitalist; PCP Family Medicine; Visit Provider Family Medicine
DX: I21.4 Non-ST elevation (NSTEMI) myocardial infarction (principal); J18.9 Pneumonia, unspecified organism; I50.33 Acute on chronic diastolic (congestive) heart failure; J44.0 Chronic obstructive pulmonary disease with (acute) lower respiratory infection; N30.00 Acute cystitis without hematuria; J96.11 Chronic respiratory failure with hypoxia; J44.1 Chronic obstructive pulmonary disease with (acute) exacerbation; I13.0 Hypertensive heart and chronic kidney disease with heart failure and stage 1 through stage 4 chronic kidney disease, or unspecified chronic kidney disease; I25.10 Atherosclerotic heart disease of native coronary artery without angina pectoris; J20.4 Acute bronchitis due to parainfluenza virus; D64.9 Anemia, unspecified; K21.9 Gastro-esophageal reflux disease without esophagitis; E78.5 Hyperlipidemia, unspecified; E11.69 Type 2 diabetes mellitus with other specified complication; E66.9 Obesity, unspecified; Z99.81 Dependence on supplemental oxygen; Z87.891 Personal history of nicotine dependence; E11.65 Type 2 diabetes mellitus with hyperglycemia; R19.7 Diarrhea, unspecified; N18.30 Chronic kidney disease, stage 3 unspecified; Z66 Do not resuscitate; Z79.4 Long term (current) use of insulin; Z79.52 Long term (current) use of systemic steroids; Z79.899 Other long term (current) drug therapy; Z68.27 Body mass index [BMI] 27.0-27.9, adult
CPT/HCPCS: 36415; 80048; 80053; 80061; 81001; 82274; 82607; 82728; 82746; 82962; 83036; 83540; 83550; 83735; 83880; 84145; 84443; 84484; 85025; 85730; 87086; 87426; 87449; 87633; 87641; 93005; 93306; 93454; 94640; 97162; 97165; 97530; 97802; 99152; 99251; Q9967; A4216; C1769; C1894; G0463; J1940

== ENCOUNTER 2021-03-07 16:50 | Inpatient (IN) | payer MEDICARE, OTHER, SELFPAY ==
[2021-03-03 02:48] VITALS: BMI 27.1
[2021-03-07 16:42] VITALS: BMI 27.3
[2021-03-07 16:45] VITALS: BP 153/73; PULSE 64; RESP 16; TEMP 36.8; O2SAT 100
--- NOTE | 2021-03-07 16:50 | EKG12_ITS ---
Test Reason : DYSRHYTHMIA Blood Pressure : / mmHG Vent. Rate : 068 BPM Atrial Rate : 068 BPM P-R Int : 146 ms QRS Dur : 082 ms QT Int : 410 ms P-R-T Axes : 079 -16 080 degrees QTc Int : 435 ms Normal sinus rhythm Inferior infarct , age undetermined Abnormal ECG When compared with ECG of 05-MAR-2021 04:48, MANUAL COMPARISON REQUIRED, DATA IS UNCONFIRMED Confirmed by RON AVILA, MARIAMA ([id number]), commissioning editor ZEHRA BROOKE ([id number]) on 03/09/2021 8:52:47 AM Referred By: HOA Confirmed By:MARIAMA VELASQUEZ MD
--- NOTE | 2021-03-07 17:20 | PCM.HP.STD ---
HPI - General General Date of Admission: 03/07/21 HPI Narrative JUAN CHUNG, is a 86 F who is directly admitted from [place] [facility] for transient left-sided weakness and right-sided hemianopia with resolved in about 2 to 3 hours by the time she came to ED. Patient was evaluated in consultation with neurologist and was decided not for TPA. Patient was recently discharged on 03/05/2021 after treatment for COPD exacerbation due to parainfluenza 3 pneumonia, non-STEMI, acute decompensated heart failure and UTI. Patient was discharged on Keflex. Currently, patient still has burning micturition and cough and unable to bring up phlegm. No fever or chills. In ED, patient had Covid PCR negative, troponin normal. CBC with differential was on baseline as compared to 03/05 except leukocytosis resolved. BUN 35, creatinine 1.46. On 03/05 BUN/creatinine 34/1.33. Glucose elevated 302 mg/dL. CT head did not show any acute change. CT angiogram of head and neck shows mild to moderate carotid atherosclerosis, left ICA 60 to 65% and right ICA 20 to 35% but not hemodynamically significant stenosis. Chest x-ray shows unchanged mild right upper lobe pneumonia. Patient is further admitted for evaluation of TIA [facility] Medical History (Updated 03/07/21 @ 17:[address] Pillo Thompson MD) Anemia Atherosclerotic heart disease of [place] coronary artery without angina pectoris Congestive heart failure (CHF) COPD (chronic obstructive pulmonary disease) Diabetes Former smoker High cholesterol Hypertension Left ovarian cyst On home oxygen therapy Home Medications Novolin R Regular U-100 Insuln 40 - 50 unit SUBCUT DAILY 03/03/21 [History Last Taken Unknown] aspirin 81 mg PO DAILY 03/03/21 [History Last Taken Unknown] cholestyramine (with sugar) 1 ea PO DAILY PRN 03/03/21 [History Last Taken Unknown] esomeprazole magnesium 20 mg PO QODAY 03/03/21 [History Last Taken Unknown] ferrous gluconate 324 mg PO DAILY 03/03/21 [History Last Taken Unknown] glimepiride 4 mg PO DAILY 03/03/21 [History Last Taken Unknown] hydrocodone-acetaminophen 1 tab PO Q6H PRN PRN 03/03/21 [History Last Taken Unknown] metformin 500 mg PO DAILY 03/03/21 [History Last Taken Unknown] potassium chloride 20 meq PO DAILY 03/03/21 [History Last Taken Unknown] prednisone 10 mg PO QODAY 03/03/21 [History Last Taken Unknown] simvastatin 80 mg PO DAILY 03/03/21 [History Last Taken Unknown] albuterol sulfate 1 - 2 puff INHALATION Q4H PRN #6.7 g 03/05/21 [Rx Last Taken Unknown] amlodipine 5 mg PO DAILY 30 Days #30 tab 03/05/21 [Rx Last Taken Unknown] carvedilol 25 mg PO BID 30 Days #60 tab 03/05/21 [Rx Last Taken Unknown] cephalexin 500 mg PO Q8H 4 Days #12 cap 03/05/21 [Rx Last Taken Unknown] ferrous gluconate 324 mg PO DAILY 30 Days #30 tab 03/05/21 [Rx Last Taken Unknown] furosemide 40 mg PO BID@1000,1800 30 Days #60 tab 03/05/21 [Rx Last Taken Unknown] guaifenesin [Mucus Relief ER] 1,200 mg PO BID 10 Days #20 tab 03/05/21 [Rx Last Taken Unknown] lisinopril 20 mg PO DAILY 30 Days #30 tab 03/05/21 [Rx Last Taken Unknown] prednisone 40 mg PO DAILY 5 Days #10 tab 03/05/21 [Rx Last Taken Unknown] Allergy/AdvReac Type Severity Reaction Status Date / Time Penicillins Allergy Mild Rash Verified 03/03/21 02:01 Surgical History (Updated 03/05/21 @ 14:32 by Adrianna Haro) H/O dilation and curettage History of appendectomy History of cholecystectomy History of left heart catheterization (03/05/21) Social History Smoking Status: Former smoker ROS ROS Narrative Constitutional: No fever or chills. Reports fatigue. Patient was scared at the time of weakness HEENT: Right-sided hemianopsia transient, resolved. Reports systems reviewed and no addt'l complaints, except as documented Respiratory/Chest: Cough, chest congestion. Mild dyspnea on exertion. Gastrointestinal: Denies coffee ground emesis, hematemesis or vomiting Genitourinary: Positive burning urination but no increased frequency or urgency. Musculoskeletal: Reports bilateral hip joints pain and limited range of motion, arthritis Neurologic: Denies seizure-like activity. Rest as described in HPI Endocrinology: Hyperglycemia. Reports systems reviewed and no addt'l complaints, except as documented Hematologic/Lymphatic: Reports systems reviewed and no addt'l complaints, except as documented Rest 12 ROS are negative except as mentioned in HPI Vital Signs Vital Signs Vital Signs: 03/07/21 16:45 Temperature 98.3 F Temperature Source Oral Pulse Rate 64 Respiratory Rate 16 Blood Pressure 153/73 H Blood Pressure Mean 99 Blood Pressure Source Monitor Blood Pressure Position Semi-Fowlers Blood Pressure Location Left Arm Pulse Ox 100 Oxygen Delivery Method Nasal Cannula Oxygen Flow Rate (L/min) 2 Physical Exam Narrative General: Alert, Oriented x3, Cooperative HEENT: Atraumatic, PERRLA, EOMI, Normocephalic. No peripheral gross loss of vision on visual confrontation test. Oral: No Gingival or Mucosal Lesions/ Ulcerations Neck: Supple, No JVD, Negative Carotid Bruits Lungs: Air entry diminished in bilateral lung bases. Right basal coarse crepitation present. On 2 L of oxygen. Cardiovascular: Regular rate, Regular Rhythm, Normal S1, Normal S2, LLSB systolic murmur Abdomen: Bowel Sounds Present, Soft, Non Tender, Non-Distended : No renal angle tenderness. No suprapubic tenderness. Extremities: No edema, Capillary Refill Less than 3 Seconds Skin: No rashes, No breakdown Musculoskeletal: No Tenderness to Palpation of Joints or Extremities Neurological: Cranial nerves II-XII grossly intact, NIH stroke scale 1 of mild left leg weakness. Psych/Mental Status: Normal Affect, Appropriate. Assessment & Plan Assessment/Plan (1) TIA (transient ischemic attack): PLAN: HANNA CHUNG, is a 86 F who is directly admitted from [place] ER for transient left-sided weakness and right-sided hemianopia with resolved in about 2 to 3 hours by the time she came to ED. Patient is further admitted for evaluation of TIA 1. TIA with transient left-sided weakness: Patient is being admitted in PCU. TIA protocol with serial NIH stroke scale, PT, OT, speech evaluation. Glucose and BP control as per stroke guidelines. Fasting profile on 03/03/2021, within normal limit, LDL 69, HDL 68. TSH 1.55. A1c tomorrow a.m. 2D echo on 03/03 shows EF 65%, normal LV size and systolic function, 2+ TR, mild to moderate , RVSP 38 mmHg. Limited echo ordered to look for PFO. 2. Recent right upper lobe pneumonia, due to parainfluenza virus, UTI with recent history of COPD exacerbation: Continue IV ceftriaxone. Currently, patient not in COPD exacerbation. Continue bronchodilator, prednisone, incentive spirometry, chest physiotherapy as was recommended after discharge 3. Recent non-STEMI: Patient had recent cath during previous hospitalization on 03/05 which showed totally occluded RCA with xdha-[id number] collaterals and moderate disease circumflex and medical therapy was recommended. Continue aspirin, beta-bridget and HELEN inhibitor and statin. Twelve-lead EKG shows sinus bradycardia at 58 bpm with old anterior infarct. 4. Recent diagnosis of CHF, chronic diastolic heart failure, HFpEF: Currently patient is not in exacerbation. Continue Lasix 40 mg twice daily. 5. CKD stage IIIB: BUN/creatinine on baseline 35/1.46. Follow BMP. 6. Hypertension: Blood pressure is controlled 7. Dyslipidemia: Continue high intensity statin 8. Diabetes mellitus type 2: Recent A1c 8.5% on 03/03/2020. Continue Accu-Cheks before meals and at bedtime and coverage with similar sliding scale. 9. Other comorbidities include former tobacco use, GERD, normocytic normochromic anemia and other comorbidities. H&H at baseline. Recent viral work-up shows anemia of chronic disease. VTE prophylaxis: Heparin 500 mg twice daily. Bilateral SCDs. Living will/advanced directive/end of life care: Patient does not have living will or advanced directive. After discussion of benefits/risks procedures involved with full code, DNR CC arrest and DNR CC, the patient opted for DNR-CC Arrest with no intubation Patient does not want artificial life support including intubation, tube feed, ventilator and/chest compression, central venous catheter, vasopressor and DC shock if needed Total time spent in [id number] encounter in discussion of advanced directive 16 minutes. (2) Urinary tract infection: Visit Charges Inpatient E&M: 20549 Init Hosp L3 OBSV E&M: 09563 Initial observation care L3 Procedures Hospitalists Procedures: 58244 Advncd Care Plan 30 Min
[2021-03-07 17:30] VITALS: PULSE 67
[2021-03-07 17:30] LABS: Bacteria 0 SEEN /hpf (None Seen); Mucous, Urine 0 SEEN /hpf (<or=2+)
[2021-03-07 17:33] LABS: Color, Urine Yellow (Yellow); Glucose, Dipstick 100 mg/dl (Normal); Ketone-Dipstick Negative (Negative); Leukocyte Esterase-Dipstick 25 /ul (Negative); Nitrite-Dipstick Negative (Negative); Occult Blood-Urine 25 /ul (Negative); Protein-Dipstick 100 mg/dl (Negative); Urine Bilirubin Dipstick Negative (Negative); Urine Clarity Sl. Cloudy (Clear); Urine Urobilinogen Normal (Normal)
[2021-03-07 17:39] LABS: Red Blood Cells-Urine 0-5 SEEN /hpf (0-5); Squamous Epithelial Cells - UA 0-5 SEEN /hpf (5-10); White Blood Cells 0-5 SEEN /hpf (0-5)
[2021-03-07 17:40] LABS: Bedside Glucose 257 mg/dL (70-110)
--- NOTE | 2021-03-07 17:42 | ECHOL_ITS ---
Reason For Study: TIA/CVA Procedure This was a limited 2D transthoracic echocardiogram. Ordered only for Bubble Study. Recent echo 03/03/2021. Exam performed portable in patient room. Atria Normal left atrium. Normal right atrium. Bubble contrast study negative for right to left interatrial shunt. Medication Performed a rapid injection of agitated mix of 9 cc saline and 1cc air to assess for atrial septal defect. ECHO/Echo, Limited Study Interpretation Summary Bubble contrast study negative for right to left interatrial shunt. Ordering Physician: Pillo Thompson Referring Physician: Joaquin Caro Performed By: Paco Stinson RCS
[2021-03-07 17:45] LABS: Magnesium 2.3 mg/dL (1.6-2.6)
[2021-03-07] MEDS: Aspirin 81 MG TAB.CHEW PO (17:54)
[2021-03-07] MEDS: Insulin Lispro 100 UNIT/ML INSULN.PEN SC ×2 (17:55→21:17)
[2021-03-07] MEDS: Furosemide 40 MG Tablet PO (17:59)
[2021-03-07 19:00] VITALS: PULSE 64
[2021-03-07 19:18] VITALS: PULSE 66; RESP 18; RESP 20; O2SAT 98
[2021-03-07] MEDS: Ipratropium/Albuterol Sulfate 3 ML AMPUL.NEB INHALATION (19:18)
[2021-03-07 20:45] VITALS: BP 126/68; PULSE 72; RESP 18; TEMP 36.9; O2SAT 100
[2021-03-07] MEDS: guaiFENesin 1,200 MG Tablet 1200 MG PO (21:16)
[2021-03-07] MEDS: Heparin Injection (Vial) 5,000 UNIT/ML VIAL 5000 UNIT SC (21:16)
[2021-03-07] MEDS: Atorvastatin Calcium 40 MG Tablet PO (21:16)
[2021-03-07] MEDS: Carvedilol 25 MG Tablet PO (21:17)
[2021-03-07 21:45] LABS: Bedside Glucose 175 mg/dL (70-110)
[2021-03-08] VITALS (15 sets, daily range): BP systolic 102–155; BP diastolic 48–70; PULSE 61–80; RESP 12–18; TEMP 36.1–36.9; O2SAT 97–100; BMI 27.3
--- NOTE | 2021-03-08 06:25 | MRI_ITS ---
We are attempting to reach an attending provider to discuss findings. An addendum with communication details will be sent when the communication is complete. STUDY: MRI BRAIN WITHOUT CONTRAST REASON FOR EXAM: Female, 86 years old. cva, left sided weakness, resolved TECHNIQUE: Standardized multiplanar fat and water weighted pulse sequences were obtained. COMPARISON: CT 03/07/2021 FINDINGS: There is mild cerebral atrophy with widening of the extra-axial spaces and ventricular dilatation. There are a limited number of small white matter hyperintensities, distributed throughout the deep white matter tracts of the cerebral hemispheres, consistent with mild chronic white matter ischemic changes. Tiny punctate hyperintensity of the lateral aspect of the right thalamus demonstrates restricted diffusion in the similar punctate linear area in the superior paravertebral white matter of right parietal lobe demonstrates restricted diffusion consistent with acute infarct. Normal T2* images of the brain without demonstrated susceptibility artifact. There is no demonstrated hemosiderin stain. Normal bilateral basal ganglia. Normal thalami. There is no extra-axial fluid accumulation. Normal flow voids within the major intracranial circulation suggesting patency by spin echo criteria. Normal sella turcica, pituitary gland, infundibular stalk, optic chiasm and hypothalamus. Normal tectal plate and pineal gland. Normal midbrain, evelia and medulla. Normal cerebellum. Normal basal cisterns. 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 Normal bilateral internal auditory canals. There are bilateral ocular lens implants with otherwise normal intraorbital contents. Normal visualized paranasal sinuses. Normal calvarium and skull base. Normal visualized soft tissue structures. Normal visualized upper cervical spine. MRI/Brain without Contrast IMPRESSION: Involutional changes of the brain, as described above. Acute punctate infarcts of the lateral aspect of the right thalamus and the superior periventricular white matter of the right parietal lobe. Electronically Signed: Joseph Montelongo MD at 10:59 EDT Tel , Service support ,
[2021-03-08 06:46] LABS: Bedside Glucose 101 mg/dL (70-110)
[2021-03-08 07:05] LABS: Absolute Lymphocyte Count 1.45 X10^3/uL (0.83-4.51); Absolute Neutrophil Count 5.1 X10^3/uL (2.0-7.7); Basophil# 0.01 X10^3/uL; Basophil% 0.1 % (0-1); Eosinophil# 0.13 X10^3/uL; Eosinophils% 1.8 % (0-5); Hematocrit 34.6 % (37-47); Hemoglobin 10.7 g/dL (12.0-15.0); Lymphocyte # 1.45 X10^3/ul (0.83-4.51); Lymphocyte % 20.2 % (19-41); Mean Corp Hgb Conc 30.9 g/dL (32-36); Mean Corpuscular Hgb 25.9 pg (27.0-32.0); Mean Corpuscular Volume 83.8 fL (81-99); Mean Platelet Vol. 9.4 fl (6.2-12.0); Monocyte# 0.52 X10^3/uL; Monocyte% 7.2 % (0-10); NRBC Flagged by Analyzer 0 % (0-5); Neutrophil # 5.06 X10^3/uL (2.7-7.7); Neutrophil % 70.4 % (47-70); Platelet Count 201 K/mm3 (150-450); RBC Distribution Width CV 13.2 % (11.6-14.6); RBC Distribution Width SD 40.5 fl (35.1-43.9); Red Blood Count 4.13 M/mm3 (4.2-5.4); White Blood Count 7.2 K/mm3 (4.4-11.0)
[2021-03-08 07:28] LABS: Anion Gap 7 (5-15); BUN 27 mg/dL (7-18); BUN/Creat Ratio 23.7 RATIO (10-20); Calcium,Total 7.8 mg/dL (8.5-10.1); Chloride 103 mmol/L (98-107); Creatinine, Serum 1.14 mg/dL (0.55-1.02); EST Glomerular Filtration Rate 48 mL/min (>60); Est Glom Filt Rate - Afr Amer 58 mL/min (>60); Estimated Creatinine Clearance 29.85 ml/min; Glucose 103 mg/dL (74-106); Potassium 3.5 mmol/L (3.5-5.1); Sodium Level 138 mmol/L (136-145)
[2021-03-08] MEDS: Heparin Injection (Vial) 5,000 UNIT/ML VIAL 5000 UNIT SC ×2 (10:10→21:03)
[2021-03-08] MEDS: predniSONE 20 MG Tablet 40 MG PO (10:10)
[2021-03-08] MEDS: Aspirin 81 MG TAB.CHEW PO (10:10)
[2021-03-08] MEDS: Carvedilol 25 MG Tablet PO ×2 (10:10→21:03)
[2021-03-08] MEDS: Potassium Chloride Oral Tablet 20 MEQ PO (10:10)
[2021-03-08] MEDS: Psyllium 1 PACKET PO (10:11)
[2021-03-08] MEDS: amLODIPine 5 MG Tablet PO (10:11)
[2021-03-08] MEDS: Furosemide 40 MG Tablet PO ×2 (10:11→17:37)
[2021-03-08] MEDS: guaiFENesin 1,200 MG Tablet 1200 MG PO ×2 (10:11→21:03)
[2021-03-08] MEDS: Ceftriaxone 1 GM/50 ML BAG IV (10:12)
[2021-03-08] MEDS: Pantoprazole Sodium 20 MG Tablet PO (10:12)
[2021-03-08] MEDS: Insulin Lispro 100 UNIT/ML INSULN.PEN SC ×3 (11:49→21:04)
[2021-03-08] MEDS: Ferrous Gluconate 324 MG Tablet PO (11:50)
[2021-03-08 12:11] LABS: Bedside Glucose 233 mg/dL (70-110)
--- NOTE | 2021-03-08 12:13 | CASEMGMT ---
SW completed PHQ-9 with pt, no indication of depression at this time. QUOC Chapa
--- NOTE | 2021-03-08 12:38 | TELEMED_ITS ---
SOC Telemed has confirmed receipt of a request for visit. This document confirms receipt of the order initiating the consult. To find the results of the consultation, please view the patient's reports for the scanned Telemed Consult.
--- NOTE | 2021-03-08 12:43 | PN.HOSP_ITS ---
Documented by User: Vonnie Garland NP, SENSITOMETRIST-C 03/08/21 13:06 Subjective Subjective: Patient seen and examined. Denies further left-sided weakness or right eye vision changes. MRI positive for acute stroke. Awaiting SOC neurology consult. Objective Data Objective Data Vital Signs: Vital Signs Temp Pulse Resp BP Pulse Ox 96.9 F L 68 18 139/61 H 97 03/08/21 08:45 03/08/21 08:45 03/08/21 08:45 03/08/21 10:00 03/08/21 08:45 Oxygen Flow Rate (L/min) 2 Oxygen Delivery Method Nasal Cannula Weight: 154 lb 5.177 oz Body Mass Index (BMI) 27.3 Orthostatic Vital Signs Start: 03/08/21 05:08 Freq: q24h Status: Active Protocol: Activity Type Activity Date Activity User E-Sign Co-Sign Detail Recorded Client Recorded Date Recorded By Document 03/08/21 04:50 TM [id number] 03/08/21 05:09 TM 03/08/21 04:50 Orthostatic Vitals Standing -Blood Pressure (90/60-120/80) 122/63 H -Extremity Use Left Arm -Pulse Rate (60-100) 72 Sitting -Blood Pressure (90/60-120/80) 124/66 H -Extremity Use Left Arm -Pulse Rate (60-100) 69 Lying -Blood Pressure (90/60-120/80) 126/70 H -Extremity Use Left Arm -Pulse Rate (60-100) 74 Intake & Output: Intake and Output for Last 24 Hours 03/06/21 03/07/21 03/08/21 23:59 23:59 23:59 Intake Total 550 / 550 Balance 550 / 550 Lab / Micro Data Result Diagrams: 03/08/21 06:34 03/08/21 06:34 Labs: Laboratory Results - last 24 hr 03/07/21 03/07/21 03/07/21 17:23 17:23 17:23 WBC RBC Hgb Hct MCV MCH MCHC RDW Std Deviation RDW Coeff of Tashia Plt Count MPV Immature Gran % (Auto) Neut % (Auto) Lymph % (Auto) [place] % (Auto) Eos % (Auto) Baso % (Auto) Absolute Neuts (auto) Absolute Lymphs (auto) Nucleated RBC % Sodium Potassium Chloride Carbon Dioxide Anion Gap BUN Creatinine Estim Creat Clear Calc Est GFR (MDRD) Af Amer Est GFR (MDRD) Non-Af BUN/Creatinine Ratio Glucose Calcium Magnesium 2.3 Troponin I 0.029 Urine Color Yellow Urine Clarity Sl. Cloudy Urine pH 6.0 Ur Specific [place] 1.010 Urine Protein 100 H Urine Glucose (UA) 100 H Urine Ketones Negative Urine Occult Blood 25 H Urine Nitrite Negative Urine Bilirubin Negative Urine Urobilinogen Normal Ur Leukocyte Esterase 25 H Urine RBC 0-5 SEEN Urine WBC 0-5 SEEN Ur Squamous Epith Cells 0-5 SEEN Urine Bacteria 0 SEEN Urine Mucus 0 SEEN POC Glucose 03/07/21 03/07/21 03/08/21 17:38 21:13 06:34 WBC RBC Hgb Hct MCV MCH MCHC RDW Std Deviation RDW Coeff of Tashia Plt Count MPV Immature Gran % (Auto) Neut % (Auto) Lymph % (Auto) [place] % (Auto) Eos % (Auto) Baso % (Auto) Absolute Neuts (auto) Absolute Lymphs (auto) Nucleated RBC % Sodium 138 Potassium 3.5 Chloride 103 Carbon Dioxide 28.0 Anion Gap 7 BUN 27 H Creatinine 1.14 H Estim Creat Clear Calc 29.85 Est GFR (MDRD) Af Amer 58 L Est GFR (MDRD) Non-Af 48 L BUN/Creatinine Ratio 23.7 H Glucose 103 Calcium 7.8 L Magnesium Troponin I Urine Color Urine Clarity Urine pH Ur Specific [place] Urine Protein Urine Glucose (UA) Urine Ketones Urine Occult Blood Urine Nitrite Urine Bilirubin Urine Urobilinogen Ur Leukocyte Esterase Urine RBC Urine WBC Ur Squamous Epith Cells Urine Bacteria Urine Mucus POC Glucose 257 H 175 H 03/08/21 03/08/21 03/08/21 06:34 06:43 11:48 WBC 7.2 RBC 4.13 L Hgb 10.7 L Hct 34.6 L MCV 83.8 MCH 25.9 L MCHC 30.9 L RDW Std Deviation 40.5 RDW Coeff of Tashia 13.2 Plt Count 201 MPV 9.4 Immature Gran % (Auto) 0.300 Neut % (Auto) 70.4 H Lymph % (Auto) 20.2 [place] % (Auto) 7.2 Eos % (Auto) 1.8 Baso % (Auto) 0.1 Absolute Neuts (auto) 5.1 Absolute Lymphs (auto) 1.45 Nucleated RBC % 0 Sodium Potassium Chloride Carbon Dioxide Anion Gap BUN Creatinine Estim Creat Clear Calc Est GFR (MDRD) Af Amer Est GFR (MDRD) Non-Af BUN/Creatinine Ratio Glucose Calcium Magnesium Troponin I Urine Color Urine Clarity Urine pH Ur Specific [place] Urine Protein Urine Glucose (UA) Urine Ketones Urine Occult Blood Urine Nitrite Urine Bilirubin Urine Urobilinogen Ur Leukocyte Esterase Urine RBC Urine WBC Ur Squamous Epith Cells Urine Bacteria Urine Mucus POC Glucose 101 233 H Radiography Diagnostic Testing: Radiology Impression Echocardiogram 03/07/21 17:42 Interpretation Summary Bubble contrast study negative for right to left interatrial shunt. Ordering Physician: Pillo Thompson Referring Physician: Joaquin Caro Performed By: Paco Sitnson RCS Brain MRI 03/08/21 06:25 IMPRESSION: Involutional changes of the brain, as described above. Acute punctate infarcts of the lateral aspect of the right thalamus and the superior periventricular white matter of the right parietal lobe. Electronically Signed: Joseph Montelongo MD at 10:59 EDT Tel , Service support , ADDENDUM: 03/08/21 1120 IMPRESSION: Involutional changes of the brain, as described above. Acute punctate infarcts of the lateral aspect of the right thalamus and the superior periventricular white matter of the right parietal lobe. N.B. : The above information has been verbally conveyed by Joseph Montelongo MD to JESSICA Elise on 03/08/2021 11:13:39 (ET). Electronically Signed: Joseph Montelongo MD at 10:59 EDT Tel , Service support , Physical Exam Const alert, oriented x3 and no apparent distress Orientation / Consciousness: awake, oriented to person, oriented to place and oriented to time HEENT normocephalic and moist oral mucous membranes Eyes PERRL, EOMs intact bilaterally and conjunctivae normal Neck no lymphadenopathy Resp normal respiratory effort and clear to auscultation bilaterally Cardio regular rate and regular rhythm Peripheral Pulses: pulses 2+ throughout GI normal to inspection, nondistended, normoactive bowel sounds, non-tender and non-distended Extremity normal to inspection Skin no rashes or lesions noted Lesions: no lesions Rashes: no rashes Trauma: no lacerations or abrasions Neuro oriented x3 Sensorium / Orientation: awake and alert Psych affect normal Assessment & Plan Assessment/Plan (1) CVA (cerebral vascular accident): PLAN: 1. Acute CVA-MRI shows acute punctate infarcts of the lateral aspect of the right thalamus in the superior ventricular white matter of the right parietal lobe. Echocardiogram negative for intra-atrial shunt. Recent complete echo as noted below. Continue aspirin, statin. Add Plavix. PT/OT/ST. SOC neurology consult placed. 2. Recent qtx-[id number]-cukcxg heart cath showed totally occluded RCA with mwvz-dx-vkbwr collaterals and moderate disease circumflex. Medical therapy recommended. On aspirin, statin, beta-bridget, HELEN inhibitor. 3. Recent right upper lobe pneumonia with COPD exacerbation due to parainfluenza virus, UTI-discharged 03/05/2021 on Keflex for 4 days. Discontinue further antibiotics after today's dose. Continue prednisone burst which will also complete today. 4. Chronic heart failure with preserved ejection fraction-echocardiogram 03/03/2021 demonstrated an EF of 65%, mild to moderate aortic stenosis, pulmonary artery systolic pressure 38 mmHg. Continue oral Lasix regimen. 5. Chronic kidney disease stage IIIb-at baseline, trend BMP. 6. Hypertension-stable, continue current regimen. 7. Hyperlipidemia-continue high intensity statin. 8. Type 2 diabetes hparoezs-Wmmw-Jdjdo with sliding scale insulin. Hemoglobin A1c 03/03/2021 8.5% 9. Normochromic normocytic anemia-continue iron supplementation. Stable. DVT prophylaxis-heparin subcu This patient was seen by ION Raymond under the supervision of Dr. Samaniego. Documented by User: Dr. Mir Samaniego DO 03/08/21 16:08 Objective Data Lab / Micro Data Result Diagrams: 03/08/21 06:34 03/08/21 06:34
[2021-03-08 17:46] LABS: Bedside Glucose 394 mg/dL (70-110)
[2021-03-08] MEDS: Atorvastatin Calcium 40 MG Tablet PO (21:03)
[2021-03-08 21:11] LABS: Bedside Glucose 371 mg/dL (70-110)
[2021-03-09] VITALS (7 sets, daily range): BP systolic 123–166; BP diastolic 57–72; PULSE 62–73; RESP 12–18; TEMP 36.4–36.6; O2SAT 95–100; BMI 27.3
[2021-03-09] MEDS: Insulin Lispro 100 UNIT/ML INSULN.PEN SC (06:53)
[2021-03-09 07:00] LABS: Bedside Glucose 188 mg/dL (70-110)
[2021-03-09] MEDS: Aspirin 81 MG TAB.CHEW PO (08:58)
[2021-03-09] MEDS: Furosemide 40 MG Tablet PO (08:59)
[2021-03-09] MEDS: predniSONE 20 MG Tablet 40 MG PO (08:59)
[2021-03-09] MEDS: Carvedilol 25 MG Tablet PO (08:59)
[2021-03-09] MEDS: guaiFENesin 1,200 MG Tablet 1200 MG PO (08:59)
[2021-03-09] MEDS: amLODIPine 5 MG Tablet PO (08:59)
[2021-03-09] MEDS: Clopidogrel Bisulfate 75 MG Tablet PO (08:59)
[2021-03-09] MEDS: Heparin Injection (Vial) 5,000 UNIT/ML VIAL 5000 UNIT SC (08:59)
[2021-03-09] MEDS: Potassium Chloride Oral Tablet 20 MEQ PO (08:59)
[2021-03-09] MEDS: Psyllium 1 PACKET PO (09:00)
--- NOTE | 2021-03-09 09:33 | CASEMGMT ---
ANNALISE ORDAZ Readmission Note Previous Admission: 03/03/2021-03/05/21 Diagnosis: Pneumonia, UTI, STEMI Pt trf'd from [facility], dx with the above. Pt had heart cath and medical therapy recommended. Pt on 3L O2 at home baseline. DC Disposition: Home with Current Admission Diagnosis: acute CVA Pt trf'd from [facility]. MRI showed acute infarct. SOC consult made and recommended to add plavix and 30 day cardiac monitoring, if unremarkable a JONG. PT and OT recommended additional therapy. Pt agreeable to [facility], feels she cannot get out to go to outpt. ANNALISE ORDAZ in to pt room. Pt states she did have a follow up appt with her PCP prior to coming back to the hospital. She states she took her meds as prescribed. Patient was provided a list of [facility] providers including quality and resource use data and consistent with the patient?s preferred geographic region, medical needs, and insurance network. The patient?s preferred provider [facility] followed by [facility]. TC to [facility] and faxed referral at this time. Will await acceptance. DC PLAN: Home with [facility] PT and OT and family support.
--- NOTE | 2021-03-09 10:50 | PCM.DC ---
Discharge Instructions Diet Discharge Diet: Low fat / Low cholesterol and Carb Control Diet Activity Discharge Activity: Return to Normal Activity Dressing / Incision Call your doctor if you observe: Numbness or Tingling and - (unilateral weakness, vision changes, speech changes) Follow Up Care Test Results: Test results from this visit will be discussed in further detail at your follow-up appointment, if applicable. Discharge Plan Admission Admit Date/Time: 03/08/21 11:33 Primary Reason for Your Visit: Acute Stroke Attending Provider: Mir Samaniego Primary Care Provider: Joaquin Caro Instructions Additional Instructions / Restrictions: You will continue aspirin and plavix (antiplatelet medications) both for 21 days and then continue aspirin 81 mg daily only. Discharge Orders/Prescriptions Prescriptions: New clopidogrel 75 mg Tablet 75 mg PO DAILY Qty: 21 RF: 0 Continued metformin 500 mg Tablet 500 mg PO DAILY RF: 0 Hold Instructions: Resume on 03/08/21. Please hold metformin given recent contrast usage. May resume at noted date but also have repeat renal function assessment with your primary care to assess if decreased or altered dosing is necessarsy. prednisone 10 mg Tablet 10 mg PO QODAY RF: 0 Hold Instructions: Resume on 03/10/21. Please hold your chronic prednisone until burst prednisone therapy has been completed. hydrocodone-acetaminophen 5-325 mg tablet 1 tab PO Q6H PRN PRN (Reason: Pain) RF: 0 simvastatin 80 mg Tablet 80 mg PO DAILY RF: 0 potassium chloride 20 mEq tablet,ER particles/crystals 20 meq PO DAILY RF: 0 esomeprazole magnesium 40 mg capsule,delayed release(DR/EC) 20 mg PO QODAY RF: 0 Novolin R Regular U-100 Insuln 100 unit/mL solution 40 - 50 unit subcut DAILY RF: 0 glimepiride 4 mg tablet 4 mg PO DAILY RF: 0 aspirin 81 mg Tablet 81 mg PO DAILY RF: 0 cholestyramine (with sugar) 4 gram powder 1 ea PO DAILY PRN (Reason: Diarrhea) RF: 0 ferrous gluconate 324 mg (36 mg iron) Tablet 324 mg PO DAILY RF: 0 furosemide 40 mg Tablet 40 mg PO BID@1000,1800 30 Days Qty: 60 RF: 1 carvedilol 25 mg Tablet 25 mg PO BID 30 Days Qty: 60 RF: 1 lisinopril 20 mg Tablet 20 mg PO DAILY 30 Days Qty: 30 RF: 1 amlodipine 5 mg Tablet 5 mg PO DAILY 30 Days Qty: 30 RF: 1 Mucus Relief ER 1,200 mg Tablet Extended Release 12hr 1,200 mg PO BID 10 Days Qty: 20 RF: 0 albuterol sulfate 90 mcg/actuation HFA aerosol inhaler 1 - 2 puff inhalation Q4H PRN (Reason: shortness of breath or wheezing) Qty: 6.7 RF: 0 ferrous gluconate 324 mg (38 mg iron) tablet 324 mg PO DAILY 30 Days Qty: 30 RF: 0 Discontinued prednisone 20 mg tablet 40 mg PO DAILY 5 Days Qty: 10 RF: 0 cephalexin 500 mg capsule 500 mg PO Q8H 4 Days Qty: 12 RF: 0 Other Ambulatory Orders: 30-Day Event Recorder (Routine) Location: None Selected Ordered By: Vonnie Garland NP Referrals / Follow Up: Jovanny Mora MD [STAFF PHYSICIAN] - Within 2 Weeks Joaquin Caro MD [Primary Care Provider] - In 1 Week Disposition Disposition (needs filled in before D/C Order can be placed): Home Health Service
--- NOTE | 2021-03-09 11:13 | DS.PCM_ITS ---
Documented by User: Vonnie Garland NP, GRILL COOK-C 03/09/21 11:19 Providers Date of Admission: 03/08/21 Primary Care Physician: Dr. Joaquin Caro MD Reason For Visit: TIA Diagnosis Discharge Diagnosis (1) CVA (cerebral vascular accident): Status: Acute Code(s): I63.9 - Cerebral infarction, unspecified Medications at Discharge Home Medications Novolin R Regular U-100 Insuln 40 - 50 unit SUBCUT DAILY 03/03/21 aspirin 81 mg PO DAILY 03/03/21 cholestyramine (with sugar) 1 ea PO DAILY PRN 03/03/21 esomeprazole magnesium 20 mg PO QODAY 03/03/21 glimepiride 4 mg PO DAILY 03/03/21 hydrocodone-acetaminophen 1 tab PO Q6H PRN PRN 03/03/21 metformin 500 mg PO DAILY 03/03/21 potassium chloride 20 meq PO DAILY 03/03/21 prednisone 10 mg PO QODAY 03/03/21 simvastatin 80 mg PO DAILY 03/03/21 Mucus Relief ER 1,200 mg PO BID 10 Days #20 tab 03/05/21 albuterol sulfate 1 - 2 puff INHALATION Q4H PRN #6.7 g 03/05/21 amlodipine 5 mg PO DAILY 30 Days #30 tab 03/05/21 carvedilol 25 mg PO BID 30 Days #60 tab 03/05/21 ferrous gluconate 324 mg PO DAILY 30 Days #30 tab 03/05/21 furosemide 40 mg PO BID@1000,1800 30 Days #60 tab 03/05/21 lisinopril 20 mg PO DAILY 30 Days #30 tab 03/05/21 clopidogrel 75 mg PO DAILY #21 tab 03/09/21 Hospital Course Operations None Procedures 2-D Echocardiogram Summary of Care Provided Minutes Spent on Discharge: 35 Hospital Course: Patient is a 86-year-old female admitted 03/07/2021 due to transient left-sided weakness and right-sided hemianopia. 1. Acute CVA-MRI shows acute punctate infarcts of the lateral aspect of the right thalamus in the superior ventricular white matter of the right parietal lobe. Echocardiogram negative for intra-atrial shunt. Recent complete echo as noted below. Continue aspirin, statin. Plavix added for dual antiplatelet therapy for 21 days followed by aspirin only thereafter. [facility] neurology consulted during admission who recommends 30-day event monitor to assess for atrial fibrillation. If event monitor demonstrates A. fib, patient will need placed on oral anticoagulation. Home with home health/therapies at discharge. Follow-up with PCP in 1 week. Follow-up with neurology in 2 weeks. 2. Recent laa-ELRBJ-asxunz heart cath showed totally occluded RCA with [id number] collaterals and moderate disease circumflex. Medical therapy recommended. On aspirin, statin, beta-bridget, HELEN inhibitor. Following with Dr. Hayden. Continue follow-up as scheduled. 3. Recent right upper lobe pneumonia with COPD exacerbation due to parainfluenza virus, UTI-discharged 03/05/2021 on Keflex for 4 days. Discontinue further antibiotics, course completed. Prednisone course completed 03/09/2021. Patient on prednisone 10 mg every other day? Unclear why she is on this chronically however may resume following completion of steroid burst. 4. Chronic heart failure with preserved ejection fraction-echocardiogram 03/03/2021 demonstrated an EF of 65%, mild to moderate aortic stenosis, pulmonary artery systolic pressure 38 mmHg. Continue oral Lasix regimen. 5. Chronic kidney disease stage IIIb-at baseline, trend BMP. 6. Hypertension-stable, continue current regimen. 7. Hyperlipidemia-continue high intensity statin. 8. Type 2 diabetes mellitus-Hemoglobin A1c 03/03/2021 8.5%. Continue home oral and insulin regimen. 9. Normochromic normocytic anemia-continue iron supplementation. Stable. Physical Exam Const alert, oriented x3 and no apparent distress Orientation / Consciousness: awake, oriented to person, oriented to place and oriented to time HEENT normocephalic and moist oral mucous membranes Eyes PERRL, EOMs intact bilaterally and conjunctivae normal Neck no lymphadenopathy Resp normal respiratory effort and clear to auscultation bilaterally Cardio regular rate and regular rhythm Peripheral Pulses: pulses 2+ throughout GI normal to inspection, nondistended, normoactive bowel sounds, non-tender and non-distended Extremity normal to inspection Skin no rashes or lesions noted Lesions: no lesions Rashes: no rashes Trauma: no lacerations or abrasions Neuro oriented x3 Sensorium / Orientation: awake and alert Psych affect normal Patient seen and examined prior to discharge. Physical assessment as noted above. Patient is stable for discharge with follow up recommendations as noted above. This patient was seen by ION Raymond under the supervision of Dr. Samaniego. ABG / Lab / Microbiology Data Result Diagrams: 03/08/21 06:34 03/08/21 06:34 Laboratory: Laboratory Results - last 24 hr 03/08/21 03/08/21 03/08/21 11:48 17:36 21:00 POC Glucose 233 H 394 H 371 H 03/09/21 06:45 POC Glucose 188 H Microbiology: Microbiology 03/07/21 17:23 Urine Culture - Preliminary Urine, Clean Catch Yeast Like Organism Microbiology 03/07/21 17:23 Urine, Clean Catch Urine Culture - Preliminary Yeast Like Organism Radiography Diagnostic Testing: Radiology Impression Brain MRI 03/08/21 06:25 IMPRESSION: Involutional changes of the brain, as described above. Acute punctate infarcts of the lateral aspect of the right thalamus and the superior periventricular white matter of the right parietal lobe. Electronically Signed: Joseph Montelongo MD at 10:59 EDT Tel , Service support , ADDENDUM: 03/08/21 1120 IMPRESSION: Involutional changes of the brain, as described above. Acute punctate infarcts of the lateral aspect of the right thalamus and the superior periventricular white matter of the right parietal lobe. N.B. : The above information has been verbally conveyed by Joseph Montelongo MD to JESSICA Elise on 03/08/2021 11:13:39 (ET). Electronically Signed: Joseph Montelongo MD at 10:59 EDT Tel , Service support , D/C Instructions Discharge Diet: Low fat / Low cholesterol and Carb Control Diet Discharge Activity: Return to Normal Activity Call your doctor if you observe: Numbness or Tingling and - (unilateral weakness, vision changes, speech changes) Meaningful Use Info Meaningful Use Diagnoses (Choose all that apply): Ischemic CVA CVA Therapy Assessed for PT,OT and/or ST?: Yes Ischemic Stroke Antithrombotic order at d/c?: Yes Dx of Atrial fib/flutter?: No Statins at discharge?: Yes Primary Dx Acute Ischemic CVA?: Yes IV tPA ordered during stay?: No Reason IV t-PA not ordered: Medical Contraindication Discharge Plan Admission Admit Date/Time: 03/08/21 11:33 Primary Reason for Your Visit: Acute Stroke Attending Provider: Mir Samaniego Primary Care Provider: Joaquin Caro Instructions Additional Instructions / Restrictions: Patient Problems: Altered Health Status related to Hospitalization Patient Goals: *Optimal Level of Health *Keep Appointments *Medication Compliance *Remain SafeYou will continue aspirin and plavix (antiplatelet medications) both for 21 days and then continue aspirin 81 mg daily only. Discharge Orders/Prescriptions Prescriptions: New clopidogrel 75 mg Tablet 75 mg PO DAILY Qty: 21 RF: 0 Continued metformin 500 mg Tablet 500 mg PO DAILY RF: 0 Hold Instructions: Resume on 03/08/21. Please hold metformin given recent contrast usage. May resume at noted date but also have repeat renal function assessment with your primary care to assess if decreased or altered dosing is necessarsy. prednisone 10 mg Tablet 10 mg PO QODAY RF: 0 Hold Instructions: Resume on 03/10/21. Please hold your chronic prednisone until burst prednisone therapy has been completed. hydrocodone-acetaminophen 5-325 mg tablet 1 tab PO Q6H PRN PRN (Reason: Pain) RF: 0 simvastatin 80 mg Tablet 80 mg PO DAILY RF: 0 potassium chloride 20 mEq tablet,ER particles/crystals 20 meq PO DAILY RF: 0 esomeprazole magnesium 40 mg capsule,delayed release(DR/EC) 20 mg PO QODAY RF: 0 Novolin R Regular U-100 Insuln 100 unit/mL solution 40 - 50 unit subcut DAILY RF: 0 glimepiride 4 mg tablet 4 mg PO DAILY RF: 0 aspirin 81 mg Tablet 81 mg PO DAILY RF: 0 cholestyramine (with sugar) 4 gram powder 1 ea PO DAILY PRN (Reason: Diarrhea) RF: 0 furosemide 40 mg Tablet 40 mg PO BID@1000,1800 30 Days Qty: 60 RF: 1 carvedilol 25 mg Tablet 25 mg PO BID 30 Days Qty: 60 RF: 1 lisinopril 20 mg Tablet 20 mg PO DAILY 30 Days Qty: 30 RF: 1 amlodipine 5 mg Tablet 5 mg PO DAILY 30 Days Qty: 30 RF: 1 Mucus Relief ER 1,200 mg Tablet Extended Release 12hr 1,200 mg PO BID 10 Days Qty: 20 RF: 0 albuterol sulfate 90 mcg/actuation HFA aerosol inhaler 1 - 2 puff inhalation Q4H PRN (Reason: shortness of breath or wheezing) Qty: 6.7 RF: 0 ferrous gluconate 324 mg (38 mg iron) tablet 324 mg PO DAILY 30 Days Qty: 30 RF: 0 Discontinued ferrous gluconate 324 mg (36 mg iron) Tablet 324 mg PO DAILY RF: 0 prednisone 20 mg tablet 40 mg PO DAILY 5 Days Qty: 10 RF: 0 cephalexin 500 mg capsule 500 mg PO Q8H 4 Days Qty: 12 RF: 0 Other Ambulatory Orders: 30-Day Event Recorder (Routine) Location: None Selected Ordered By: Vonnie Garland NP Referrals / Follow Up: Jovanny Mora MD [STAFF PHYSICIAN] - Within 2 Weeks Joaquin Caro MD [Primary Care Provider] - In 1 Week Disposition Disposition (needs filled in before D/C Order can be placed): Home Health Service Documented by User: Dr. Mir Samaniego DO 03/09/21 17:00 Providers Date of Admission: 03/08/21 Reason For Visit: TIA Medications at Discharge Home Medications Novolin R Regular U-100 Insuln 40 - 50 unit SUBCUT DAILY 03/03/21 aspirin 81 mg PO DAILY 03/03/21 cholestyramine (with sugar) 1 ea PO DAILY PRN 03/03/21 esomeprazole magnesium 20 mg PO QODAY 03/03/21 glimepiride 4 mg PO DAILY 03/03/21 hydrocodone-acetaminophen 1 tab PO Q6H PRN PRN 03/03/21 metformin 500 mg PO DAILY 03/03/21 potassium chloride 20 meq PO DAILY 03/03/21 prednisone 10 mg PO QODAY 03/03/21 simvastatin 80 mg PO DAILY 03/03/21 Mucus Relief ER 1,200 mg PO BID 10 Days #20 tab 03/05/21 albuterol sulfate 1 - 2 puff INHALATION Q4H PRN #6.7 g 03/05/21 amlodipine 5 mg PO DAILY 30 Days #30 tab 03/05/21 carvedilol 25 mg PO BID 30 Days #60 tab 03/05/21 ferrous gluconate 324 mg PO DAILY 30 Days #30 tab 03/05/21 furosemide 40 mg PO BID@1000,1800 30 Days #60 tab 03/05/21 lisinopril 20 mg PO DAILY 30 Days #30 tab 03/05/21 clopidogrel 75 mg PO DAILY #21 tab 03/09/21 Hospital Course Procedures 2-D Echocardiogram Summary of Care Provided Minutes Spent on Discharge: 32 Hospital Course: 86-year-old white female presents with left-sided weakness and right-sided hemianopsia. Patient underwent work-up that showed acute punctate infarcts in the lateral aspect of the right thalamus in the superior ventricular white matter of the right parietal lobe. Echocardiogram was unremarkable for any shunt. Patient was seen by [facility] neurology recommend a 30-day event monitor. No evidence of atrial fibrillation was seen. Patient meantime will continue with her aspirin, clopidogrel and will continue with high intensity statin for age and atorvastatin 40 mg daily. Patient has had a resolution of her symptoms and visual valerio are intact. Patient will be discharged and follow-up with neurology as outpatient. Physical Exam Const alert and oriented x3 Resp normal respiratory effort and clear to auscultation bilaterally Cardio regular rate, regular rhythm, S1 normal heart sound and S2 normal heart sound GI normal to inspection, nondistended, normoactive bowel sounds, non-tender and non-distended Psych affect normal ABG / Lab / Microbiology Data Result Diagrams: 03/08/21 06:34 03/08/21 06:34 Discharge Plan Admission Admit Date/Time: 03/08/21 11:33 Primary Reason for Your Visit: Acute Stroke Attending Provider: Mir Samaniego Primary Care Provider: Joaquin Caro Instructions Additional Instructions / Restrictions: Patient Problems: Altered Health Status related to Hospitalization Patient Goals: *Optimal Level of Health *Keep Appointments *Medication Compliance *Remain SafeYou will continue aspirin and plavix (antiplatelet medications) both for 21 days and then continue aspirin 81 mg daily only. Discharge Orders/Prescriptions Prescriptions: New clopidogrel 75 mg Tablet 75 mg PO DAILY Qty: 21 RF: 0 Continued metformin 500 mg Tablet 500 mg PO DAILY RF: 0 Hold Instructions: Resume on 03/08/21. Please hold metformin given recent contrast usage. May resume at noted date but also have repeat renal function assessment with your primary care to assess if decreased or altered dosing is necessarsy. prednisone 10 mg Tablet 10 mg PO QODAY RF: 0 Hold Instructions: Resume on 03/10/21. Please hold your chronic prednisone until burst prednisone therapy has been completed. hydrocodone-acetaminophen 5-325 mg tablet 1 tab PO Q6H PRN PRN (Reason: Pain) RF: 0 simvastatin 80 mg Tablet 80 mg PO DAILY RF: 0 potassium chloride 20 mEq tablet,ER particles/crystals 20 meq PO DAILY RF: 0 esomeprazole magnesium 40 mg capsule,delayed release(DR/EC) 20 mg PO QODAY RF: 0 Novolin R Regular U-100 Insuln 100 unit/mL solution 40 - 50 unit subcut DAILY RF: 0 glimepiride 4 mg tablet 4 mg PO DAILY RF: 0 aspirin 81 mg Tablet 81 mg PO DAILY RF: 0 cholestyramine (with sugar) 4 gram powder 1 ea PO DAILY PRN (Reason: Diarrhea) RF: 0 furosemide 40 mg Tablet 40 mg PO BID@1000,1800 30 Days Qty: 60 RF: 1 carvedilol 25 mg Tablet 25 mg PO BID 30 Days Qty: 60 RF: 1 lisinopril 20 mg Tablet 20 mg PO DAILY 30 Days Qty: 30 RF: 1 amlodipine 5 mg Tablet 5 mg PO DAILY 30 Days Qty: 30 RF: 1 Mucus Relief ER 1,200 mg Tablet Extended Release 12hr 1,200 mg PO BID 10 Days Qty: 20 RF: 0 albuterol sulfate 90 mcg/actuation HFA aerosol inhaler 1 - 2 puff inhalation Q4H PRN (Reason: shortness of breath or wheezing) Qty: 6.7 RF: 0 ferrous gluconate 324 mg (38 mg iron) tablet 324 mg PO DAILY 30 Days Qty: 30 RF: 0 Discontinued ferrous gluconate 324 mg (36 mg iron) Tablet 324 mg PO DAILY RF: 0 prednisone 20 mg tablet 40 mg PO DAILY 5 Days Qty: 10 RF: 0 cephalexin 500 mg capsule 500 mg PO Q8H 4 Days Qty: 12 RF: 0 Other Ambulatory Orders: 30-Day Event Recorder (Routine) Location: None Selected Ordered By: Vonnie Garland NP Referrals / Follow Up: Jovanny Mora MD [STAFF PHYSICIAN] - Within 2 Weeks Joaquin Caro MD [Primary Care Provider] - In 1 Week Disposition Disposition (needs filled in before D/C Order can be placed): Home Health Service Visit Charges Inpatient E&M: 59753 Disch Hosp
--- NOTE | 2021-03-09 11:35 | PHA.DC.MR ---
Addendum entered and electronically signed by Lilia Izquierdo 03/09/21 11:37: Patient was counseled on following medication. Patient verbalized understanding and this [facility] answered all questions. 1. CLOPIDOGREL 75MG PO DAILY FOR 21 DAYS Original Note: Pharmacy Service has performed discharge medication reconciliation for this patient. The patient's discharge medication list was reviewed for discrepancies and discrepancies were resolved. Home Medications Novolin R Regular U-100 Insuln 40 - 50 unit SUBCUT DAILY 03/03/21 aspirin 81 mg PO DAILY 03/03/21 cholestyramine (with sugar) 1 ea PO DAILY PRN 03/03/21 esomeprazole magnesium 20 mg PO QODAY 03/03/21 glimepiride 4 mg PO DAILY 03/03/21 hydrocodone-acetaminophen 1 tab PO Q6H PRN PRN 03/03/21 metformin 500 mg PO DAILY 03/03/21 potassium chloride 20 meq PO DAILY 03/03/21 prednisone 10 mg PO QODAY 03/03/21 simvastatin 80 mg PO DAILY 03/03/21 Mucus Relief ER 1,200 mg PO BID 10 Days #20 tab 03/05/21 albuterol sulfate 1 - 2 puff INHALATION Q4H PRN #6.7 g 03/05/21 amlodipine 5 mg PO DAILY 30 Days #30 tab 03/05/21 carvedilol 25 mg PO BID 30 Days #60 tab 03/05/21 ferrous gluconate 324 mg PO DAILY 30 Days #30 tab 03/05/21 furosemide 40 mg PO BID@1000,1800 30 Days #60 tab 03/05/21 lisinopril 20 mg PO DAILY 30 Days #30 tab 03/05/21 clopidogrel 75 mg PO DAILY #21 tab 03/09/21
--- NOTE | 2021-03-09 13:57 | CASEMGMT ---
Referral made to [facility] as no answer from [facility]. Per Mely, they are able to accept pt and will see on . TC to pt to make aware. She verbalizes understanding.
== END 2021-03-09 12:37 | disposition home health service (06) | DRG 64 ==
PROVIDERS: Admitting Provider Internal Medicine; PCP Family Medicine
DX: I63.9 Cerebral infarction, unspecified (principal); I21.4 Non-ST elevation (NSTEMI) myocardial infarction; J18.9 Pneumonia, unspecified organism; I13.0 Hypertensive heart and chronic kidney disease with heart failure and stage 1 through stage 4 chronic kidney disease, or unspecified chronic kidney disease; I50.32 Chronic diastolic (congestive) heart failure; N39.0 Urinary tract infection, site not specified; G83.14 Monoplegia of lower limb affecting left nondominant side; H53.8 Other visual disturbances; Z87.891 Personal history of nicotine dependence; R29.701 NIHSS score 1; E11.22 Type 2 diabetes mellitus with diabetic chronic kidney disease; N18.32 Chronic kidney disease, stage 3b; E78.5 Hyperlipidemia, unspecified; K21.9 Gastro-esophageal reflux disease without esophagitis; D63.1 Anemia in chronic kidney disease; Z66 Do not resuscitate; I25.10 Atherosclerotic heart disease of native coronary artery without angina pectoris; Z79.51 Long term (current) use of inhaled steroids; Z79.84 Long term (current) use of oral hypoglycemic drugs; Z79.899 Other long term (current) drug therapy
CPT/HCPCS: 36415; 70551; 80048; 81001; 82962; 83735; 84484; 85025; 87086; 87088; 92610; 93005; 93308; 94640; 94667; 94762; 97162; 97166; 99251; A4216; G0463